=== PATIENT | female | born 1980 | race Caucasian/White ===

== ENCOUNTER → 2018-01-28 16:10 | Outpatient (CLI) | payer OTHER, SELFPAY ==
--- NOTE | 2018-01-28 16:12 | DI.US.S_ITS ---
PROCEDURE: US OB <= 14 WEEKS FETUS INDICATIONS: Dating/Size OUTSIDE/PRIOR DATING DATA: Last menstrual period (LMP): 10/30/17. LMP-based estimated date of delivery (TRISTON): 09/03/18. First dating scan (date and location): 01/28/18, [facility]. Estimated date of delivery (TRISTON) from first dating scan: 09/03/18. TECHNIQUE: Real-time scanning was performed of the fetus and maternal pelvic organs, with image documentation. Endovaginal scanning was also performed to better visualize the fetus and maternal ovaries. COMPARISON: None. FINDINGS: Embryo: A single living uterine gestation is present which measures 2.2 cm in length for a gestational age of 8 weeks, 6 days. No americo-gestational bleed. Measurement variability in dating: +/- 4 weeks by LMP, +/- 7 days by mean sac diameter (use before 6 weeks gestation if crown-rump length not able to be measured), +/- 5 days by crown-rump length (up to 8 weeks 6 days gestation), +/- 7 days by crown-rump length (up to 13 weeks 6 days gestation). Maternal organs: There is a 1.8 cm diameter right ovarian corpus luteal cyst. The left ovary is unremarkable. Limited images through the kidneys demonstrate no hydronephrosis. IMPRESSION: 1. Single live intrauterine gestation with a gestational age of 8 weeks 6 days by crown-rump length. 2. Right corpus luteal cyst. Dictated by: Elana Mcginnis M.D. on 01/28/2018 at 16:56 Approved by: Elana Mcginnis M.D. on 01/28/2018 at 16:58
== END ==
PROVIDERS: Family Provider Family Medicine; PCP Family Medicine; Visit Provider Family Medicine
DX: O34.81 Maternal care for other abnormalities of pelvic organs, first trimester (principal); N83.11 Corpus luteum cyst of right ovary; Z3A.08 8 weeks gestation of pregnancy
CPT/HCPCS: 76801

== ENCOUNTER → 2018-01-30 13:24 | Outpatient (CLI) | payer OTHER, SELFPAY ==
[2018-01-30 14:01] LABS: Add Manual Diff / Slide Review NO; Basophils Percent Auto 0.3 % (0-2); Eosinophils Percent Auto 3.3 % (2-4); Hematocrit 44.2 % (36-46); Hemoglobin 15.6 g/dL (12.0-16.0); Lymphocytes Percent Auto 23.9 % (25-40); Mean Corpuscular HGB Conc 35.3 % (30-36); Mean Corpuscular Volume 90.7 fL (80-100); Monocytes Percent Auto 6.9 % (3-14); Neutrophils Absolute Auto 5700 /uL (3000-5900); Neutrophils Percent Auto 65.6 % (50-75); Platelet Count 294 X10^3/uL (150-400); Red Blood Cell Count 4.88 X10^6/uL (4.0-5.2); Red Cell Distribution Width 12.6 % (11.6-14.8); White Blood Cell Count 8.7 X10^3/uL (4.5-11.0)
[2018-01-30 16:25] LABS: Hepatitis B Surface Antigen NEGATIVE s/c (NEGATIVE); Rubella Antibody IgG 18.5 IU/mL (>15)
[2018-01-30 16:41] LABS: HIV 1 and 2 Antibody NEGATIVE (NEGATIVE); Hep C Virus Ab w/Reflex Quant NEGATIVE s/c (NEGATIVE)
[2018-02-03 14:40] LABS: HSV 2 IGG AB < 0.90 index (< 0.90)
[2018-02-06 13:47] LABS: Rapid Plasma Reagin NON-REACTIVE
== END ==
PROVIDERS: Family Provider Family Medicine; PCP Family Medicine; Visit Provider Family Medicine
DX: Z34.91 Encounter for supervision of normal pregnancy, unspecified, first trimester (principal)
CPT/HCPCS: 36415; 80055; 86695; 86696; 86703; 86787; 86803; 86850; 86900; 86901; 87086

== ENCOUNTER → 2018-03-31 16:36 | Outpatient (CLI) | payer OTHER, SELFPAY ==
[2018-04-06 10:16] LABS: AFP, Serum 29.1 ng/mL; Calc Gestational Age 17.7; Cigarette Smoker N; Donated Egg N; Donor Egg Age NOT GIVEN; Estriol, Free 1.29 ng/mL; Inhibin A, Dimeric 120 pg/mL; Maternal Ethnicity NOT GIVEN; Maternal Weight 154 lbs; Number of Fetuses NOT GIVEN; Previous Pregnancy Down Syndro N; hCG, MoM 0.83; hCG, Serum 20.5 IU/mL
== END ==
PROVIDERS: PCP Family Medicine; Visit Provider Family Medicine
DX: Z3A.17 17 weeks gestation of pregnancy (principal)
CPT/HCPCS: 36415; 82105; 82677; 84702; 86336

== ENCOUNTER → 2018-04-24 15:41 | Outpatient (CLI) | payer OTHER, SELFPAY ==
--- NOTE | 2018-04-24 15:42 | DI.US.S_ITS ---
PROCEDURE: US OB >= 14 WEEKS FETUS INDICATIONS: anatomy screening OUTSIDE/PRIOR DATING DATA: Last menstrual period (LMP): 10/30/17. LMP-based estimated date of delivery (TRISTON): 09/03/18. First dating scan (date and location): 01/28/18, [facility]. Estimated date of delivery (TRISTON) from first dating scan: 09/03/18. TECHNIQUE: Real-time scanning was performed of the fetus, with image documentation and biometric measurements. Endovaginal scanning: No COMPARISON: [facility], , OB <= 14 WEEKS FETUS, 01/28/2018, 16:28. FINDINGS: General: A single living intrauterine gestation is present. Presentation: Vertex. Placenta: Placental position is anterior, without previa. Amniotic fluid index: 16.3 cm, normal range is 5-24 cm. heart rate: 147 beats per minute. Maternal cervical canal: 4.8 cm long. Normal lower limit is 2.5 cm. biometrics: Biparietal diameter: 21 weeks 5 days Head circumference: 21 weeks 5 days Abdominal circumference: 22 weeks 1 day Femur length: 21 weeks 6 days Estimated gestational age from initial scan: 21 weeks 1 day Composite gestational age from present scan: 21 weeks 6 days Estimated weight and percentile: 466 g; 86 percentile Measurement variability for biometric dating: +/- 7 days from 14 weeks to 15 weeks 6 days gestation, +/- 10 days from 16 weeks to 21 weeks 6 days gestation, +/- 2 weeks from 22 weeks to 27 weeks 6 days gestation, +/- 3 weeks for 28 weeks gestation or later. weight reference: 4500 g or EFW >90/95% is considered macrosomia or large for gestational age. EFW <10% is small for gestational age. EFW 5% or less is considered intra-uterine growth restriction. Anatomic survey: Neuro: Ventricles are non-dilated at less than 10 mm. Cisterna magna is normal at 3-11 mm. Cerebellum is normal in size and morphology. Nuchal skin fold: Normal at less than 6 mm between 14-21 weeks gestational age. Face: Nose and lips, facial profile are normal. Spine: No evidence for spina bifida. Heart: 4-chambered heart is present, with normal ventricular outflow tracts. Diaphragm: Diaphragm is intact. Stomach: Left-sided stomach is present. Kidneys: No hydronephrosis. Normal is less than 5 mm in 2nd trimester, less than 7 mm in 3rd trimester. Cord: 3-vessel cord has orthotopic insertion. Bladder: Normal in size. Extremities: All 4 extremities identified. IMPRESSION: 1. Single living IUP redemonstrated and interval growth is upper limits of normal. 2. Normal anatomic survey. Dictated by: Vasile FAY Interpreted: Oralia Levine MD on 04/24/2018 at 16:55 Approved by: Oralia Levine M.D. on 04/24/2018 at 17:01
== END ==
PROVIDERS: PCP Family Medicine; Visit Provider Family Medicine
DX: Z36.89 Encounter for other specified antenatal screening (principal); Z3A.21 21 weeks gestation of pregnancy
CPT/HCPCS: 76811

== ENCOUNTER → 2018-06-05 13:59 | Outpatient (CLI) | payer OTHER, SELFPAY ==
[2018-06-05 15:45] LABS: Hematocrit 37.6 % (36-46); Hemoglobin 12.9 g/dL (12.0-16.0)
[2018-06-05 16:11] LABS: GTT (PREG) 1 Hour PP 50gm Dose 103 mg/dL (76-139)
== END ==
PROVIDERS: PCP Family Medicine; Visit Provider Family Medicine
DX: Z3A.26 26 weeks gestation of pregnancy (principal)
CPT/HCPCS: 36415; 82950; 85014; 85018

== ENCOUNTER → 2018-08-07 14:36 | Outpatient (CLI) | payer OTHER, SELFPAY ==
[2018-08-08 11:53] LABS: Strep Grp B PCR NEG for Grp B Strep
== END ==
PROVIDERS: PCP Family Medicine; Visit Provider Family Medicine
DX: Z3A.36 36 weeks gestation of pregnancy (principal)
CPT/HCPCS: 87653

== ENCOUNTER 2018-08-24 13:45 | Outpatient (RCR) | payer OTHER, SELFPAY ==
--- NOTE | 2018-08-06 18:41 | PT.OIE ---
Current Diagnoses Low back pain (08/05/18) Other specified related conditions, unspecified trimester (08/05/18) Past Medical History (Last Reviewed 07/25/18 @ 09:22 by Yi Rolon DO) Chronic back pain (Chronic 2008) HSV (herpes simplex virus) infection (Chronic 2012) Chickenpox (Resolved 1985) Past Surgical History (Last Reviewed 07/25/18 @ 09:22 by Yi Rolon DO) No history of previous surgery (Resolved 07/2016) Provider Visit Care Team Role Provider Type Yi Rolon DO Attending Provider Physician Primary Care Provider Specialty: Family Practice Address: [address] [place] [address] Email: [email or web address] Physical Therapy Initial Evaluation PT-OP-A Visit Information Start: 08/06/18 18:19 Freq: Status: Active Protocol: Document 08/05/18 11:30 AMH (Rec: 08/06/18 18:39 AMH [email or web address]) Out-Patient Physical Therapy Visit Information Visit Information Visit Type Initial Evaluation Visit Note 38 year old female 36 weeks pregnanct with her first . She has a history of back pain and previous disc injury. She is seeking guidance in this last month of to make sure she is doing all she can for her low back. She describes some soreness in her anterior pelvis and inner thighs and has LBP 4/10 across the low back Visit Start Time 11:30 Visit Stop Time 12:15 Total Visit Minutes 45 Visit Number 1 Evaluation Information Evaluation Date 08/05/18 PT-OP-B Current Condition Start: 08/06/18 18:19 Freq: Status: Active Protocol: Document 08/05/18 11:30 AMH (Rec: 08/06/18 18:39 AMH [email or web address]) Current Condition History of Current Condition Onset Date history of previous low back injury and now 36 weeks Current Complaints general LBP 4/10, anterior groin pain with pregnacy History of Current Condition 38 year old female 36 weeks with her first . She has been active throughout her and wants to make sure she is doing her exercises corrrectly to support her spine as she has a history of disc injury. At this time she is not expereincing any sciatic symptoms but does have general LBP 4/10 Treatment Goals Patient/Caregiver Goals to be instructed with exercises safe for PT-OP-F Manual Assessment Start: 08/06/18 18:19 Freq: Status: Active Protocol: Document 08/05/18 11:30 AMH (Rec: 08/06/18 18:39 AMH [email or web address]) Manual Assessments Soft Tissue Assessment Soft Tissue Mobility Assessment tightness lumbar parapsinals left greater than right, iliopsoas tightness bilaterally, piriformis tightness Joint Mobility Assessment Joint Mobility Assessment increased mobility at the SI joint due to decreased force closure with PT-OP-J Posture/Palpation/Skin Start: 08/06/18 18:19 Freq: Status: Active Protocol: Document 08/05/18 11:30 AMH (Rec: 08/06/18 18:39 AMH [email or web address]) Posture Evaluation Comments Posture Comments Benitez has been very careful with her posture for her and she is standing is really great posture, there is not a exaggerated lumbar lordosis Palpation Assessment Location One Palpation Location lumbar paraspinals Palpation Findings Soft Tissue Tightness Muscle Guarding PT-OP-Q Treatments Start: 08/06/18 18:19 Freq: Status: Active Protocol: Document 08/06/18 18:39 AMH (Rec: 08/06/18 18:41 AMH [email or web address]) Therapeutic Exercises Other Exercises 5 Other Exercise Name modified down dog with a chair Reps/Minutes hold 5 breaths 4 Other Exercise Name seated ball pelvic tilts and lateral tilts Reps/Minutes x 10 3 Other Exercise Name seated ball hip flexor stretch Side bilateral Reps/Minutes hold 1 min 2 Other Exercise Name supine TA and pelvic floor facilitation Reps/Minutes x 10 1 Other Exercise Name TA and pelvic floor facilitation in quadraped PT-OP-T Assessment and Plan Start: 08/06/18 18:19 Freq: Status: Active Protocol: Document 08/05/18 11:30 AMH (Rec: 08/06/18 18:39 AMH [email or web address]) Physical Therapy Assessment Rehab Potential Rehabilitation Potential Excellent Evaluation Complexity Number of Personal Factors/Comorbidities 0 Number of Body Systems Impaired 1-2 Clinical Presentation at Evaluation Stable Impairments Impairments Activity Tolerance Pain Soft Tissue Mobility Tone Other Impairments SI instability with , low back tightness with Goals Three Impairment low back pain rated 4/10 Short Term Goal (STG) prevent any further low back pain and help to reduce tightness in the lower back for the remainder of Benitez's STG Duration 6 weeks Two Impairment iliopsoas tightness left greater than right Short Term Goal (STG) Benitez is able to work on iliopsoas flexibility stretches while seated on the ball STG Duration 6 weeks One Impairment pt seeks guidance with a home core stabilization program Short Term Goal (STG) Benitez is instructed in a program for core stabilization and flexibility STG Duration 5 weeks Assessment Summary Assessment Benitez presents to physical therapy today with low back discomfort and tightness with . She has a history of previous low back disc injury so Benitez is working hard at preventing any return of her nerve radicular symptoms that went along with that previous injury. At this time she complains of low back pain rated 4/10 and has been expereincing soreness in the anterior pelvis. She was in good alignment today with her SI joint but does show some SI instability with single leg stance. Her low back paraspinals are tight but she does not have any pain to palpation. She is limited with iliopsoas tightness and has difficulty feeling her pelvic floor contractions. Today's treament included TA and pelvic floor isolations, stretches for the low back and hip muscle. Physical Therapy Plan Frequency and Duration Frequency of Treatment 1x/Week Duration of Treatment 6 weeks Plan of Care Start Date 08/05/18 Plan of Care End Date 09/09/18 Therapeutic Interventions Therapeutic Interventions Home Exercise Program Manual Therapy Neuromuscular Re-education Self-Care/Home Management Soft Tissue Mobilization Modalities Cold Pack/Ice Massage Next Visit Focus/Plan Next Note Type Treatment Note Next Visit Plan review core stabilization and ball exercises given for HEP, manual therapy techniques to help reduce low back tightness
--- NOTE | 2018-08-10 15:55 | PT.OTN ---
Current Diagnoses Low back pain (08/10/18) Other specified related conditions, unspecified trimester (08/10/18) Physical Therapy Treatment Note PT-OP-A Visit Information Start: 08/06/18 18:19 Freq: Status: Active Protocol: Document 08/10/18 14:30 AMB (Rec: 08/10/18 15:55 AMB [email or web address]) Out-Patient Physical Therapy Visit Information Visit Information Visit Type Treatment Note Visit Start Time 14:45 Visit Stop Time 15:15 Total Visit Minutes 30 Visit Number 2 PT-OP-B Current Condition Start: 08/06/18 18:19 Freq: Status: Active Protocol: Document 08/05/18 11:30 AMH (Rec: 08/06/18 18:39 AMH [email or web address]) Current Condition History of Current Condition Onset Date history of previous low back injury and now 36 weeks Current Complaints general LBP 4/10, anterior groin pain with pregnacy History of Current Condition 38 year old female 36 weeks with her first . She has been active throughout her and wants to make sure she is doing her exercises corrrectly to support her spine as she has a history of disc injury. At this time she is not expereincing any sciatic symptoms but does have general LBP 4/10 Treatment Goals Patient/Caregiver Goals to be instructed with exercises safe for PT-OP-F Manual Assessment Start: 08/06/18 18:19 Freq: Status: Active Protocol: Document 08/05/18 11:30 AMH (Rec: 08/06/18 18:39 AMH [email or web address]) Manual Assessments Soft Tissue Assessment Soft Tissue Mobility Assessment tightness lumbar parapsinals left greater than right, iliopsoas tightness bilaterally, piriformis tightness Joint Mobility Assessment Joint Mobility Assessment increased mobility at the SI joint due to decreased force closure with PT-OP-J Posture/Palpation/Skin Start: 08/06/18 18:19 Freq: Status: Active Protocol: Document 08/05/18 11:30 AMH (Rec: 08/06/18 18:39 AMH [email or web address]) Posture Evaluation Comments Posture Comments Benitez has been very careful with her posture for her and she is standing is really great posture, there is not a exaggerated lumbar lordosis Palpation Assessment Location One Palpation Location lumbar paraspinals Palpation Findings Soft Tissue Tightness Muscle Guarding PT-OP-Q Treatments Start: 08/06/18 18:19 Freq: Status: Active Protocol: Document 08/10/18 14:30 AMB (Rec: 08/10/18 15:55 AMB [email or web address]) Therapeutic Exercises Other Exercises 8 Other Exercise Name LE ER in quadruped 7 Other Exercise Name UE ext in quadruped 6 Other Exercise Name modified milena pose 1 Other Exercise Name TA and pelvic floor facilitation in quadraped Manual Therapy Treatment Soft Tissue Mobilization 1 Body Location low back Mobilization Type Myofascial Release Body Position prone on pillow PT-OP-T Assessment and Plan Start: 08/06/18 18:19 Freq: Status: Active Protocol: Document 08/10/18 14:30 AMB (Rec: 08/10/18 15:55 AMB [email or web address]) Physical Therapy Assessment Assessment Summary Assessment Pt tolerated exercises and manual therapy well. Tends to go into slight lordosis with quadruped, but overall doing well. Physical Therapy Plan Next Visit Focus/Plan Next Note Type Treatment Note Next Visit Plan progress core stabilization and ball exercises given for HEP, manual therapy techniques to help reduce low back tightness
--- NOTE | 2018-08-19 11:50 | PT.OTN ---
Current Diagnoses Low back pain (08/19/18) Other specified related conditions, unspecified trimester (08/19/18) Physical Therapy Treatment Note PT-OP-A Visit Information Start: 08/06/18 18:19 Freq: Status: Active Protocol: Document 08/19/18 08:15 AMB (Rec: 08/19/18 08:29 AMB [email or web address]) Out-Patient Physical Therapy Visit Information Visit Information Visit Type Treatment Note Visit Start Time 08:15 Visit Stop Time 09:00 Total Visit Minutes 45 Visit Number 3 PT-OP-B Current Condition Start: 08/06/18 18:19 Freq: Status: Active Protocol: Document 08/05/18 11:30 AMH (Rec: 08/06/18 18:39 AMH [email or web address]) Current Condition History of Current Condition Onset Date history of previous low back injury and now 36 weeks Current Complaints general LBP 4/10, anterior groin pain with pregnacy History of Current Condition 38 year old female 36 weeks with her first . She has been active throughout her and wants to make sure she is doing her exercises corrrectly to support her spine as she has a history of disc injury. At this time she is not expereincing any sciatic symptoms but does have general LBP 4/10 Treatment Goals Patient/Caregiver Goals to be instructed with exercises safe for PT-OP-C Subjective Start: 08/06/18 18:19 Freq: Status: Active Protocol: Document 08/19/18 08:15 AMB (Rec: 08/19/18 11:50 AMB [email or web address]) OP-PT Subjective Patient Comments Patient Comments Pt went on a hike yesterday and her left sided back pain is a bit increased from that. PT-OP-F Manual Assessment Start: 08/06/18 18:19 Freq: Status: Active Protocol: Document 08/05/18 11:30 AMH (Rec: 08/06/18 18:39 AMH [email or web address]) Manual Assessments Soft Tissue Assessment Soft Tissue Mobility Assessment tightness lumbar parapsinals left greater than right, iliopsoas tightness bilaterally, piriformis tightness Joint Mobility Assessment Joint Mobility Assessment increased mobility at the SI joint due to decreased force closure with PT-OP-J Posture/Palpation/Skin Start: 08/06/18 18:19 Freq: Status: Active Protocol: Document 08/05/18 11:30 AMH (Rec: 08/06/18 18:39 AMH [email or web address]) Posture Evaluation Comments Posture Comments Benitez has been very careful with her posture for her and she is standing is really great posture, there is not a exaggerated lumbar lordosis Palpation Assessment Location One Palpation Location lumbar paraspinals Palpation Findings Soft Tissue Tightness Muscle Guarding PT-OP-Q Treatments Start: 08/06/18 18:19 Freq: Status: Active Protocol: Document 08/19/18 08:15 AMB (Rec: 08/19/18 11:50 AMB [email or web address]) Therapeutic Exercises Other Exercises 8 Other Exercise Name LE ER in quadruped 7 Other Exercise Name UE ext in quadruped 6 Other Exercise Name modified milena pose 1 Other Exercise Name TA and pelvic floor facilitation in quadraped Manual Therapy Treatment Soft Tissue Mobilization 1 Body Location low back Mobilization Type Myofascial Release Body Position prone on pillow Taping 1 Body Location lumbar Type of Tape Kinesio Tape Comments 2Is PT-OP-R Modalities Start: 08/10/18 15:55 Freq: Status: Active Protocol: Document 08/10/18 14:30 AMB (Rec: 08/10/18 15:56 AMB [email or web address]) Hot Pack/Cold Pack Treatment Cold Pack Location low back Patient Position Prone Treatment Duration (minutes) 8 Comments on prone pillow PT-OP-T Assessment and Plan Start: 08/06/18 18:19 Freq: Status: Active Protocol: Document 08/19/18 08:15 AMB (Rec: 08/19/18 11:50 AMB [email or web address]) Physical Therapy Assessment Assessment Summary Assessment The patient is doing well with stretches, continued to educate in body mechanics. Physical Therapy Plan Next Visit Focus/Plan Next Note Type Treatment Note Next Visit Plan progress core stabilization and ball exercises given for HEP, manual therapy techniques to help reduce low back tightness
--- NOTE | 2018-08-24 15:53 | PT.OTN ---
Current Diagnoses Low back pain (08/24/18) Other specified related conditions, unspecified trimester (08/24/18) Physical Therapy Treatment Note PT-OP-A Visit Information Start: 08/06/18 18:19 Freq: Status: Active Protocol: Document 08/24/18 13:45 AMB (Rec: 08/24/18 15:53 AMB [email or web address]) Out-Patient Physical Therapy Visit Information Visit Information Visit Type Treatment Note Visit Start Time 08:15 Visit Stop Time 09:00 Total Visit Minutes 45 Visit Number 4 PT-OP-B Current Condition Start: 08/06/18 18:19 Freq: Status: Active Protocol: Document 08/05/18 11:30 AMH (Rec: 08/06/18 18:39 AMH [email or web address]) Current Condition History of Current Condition Onset Date history of previous low back injury and now 36 weeks Current Complaints general LBP 4/10, anterior groin pain with pregnacy History of Current Condition 38 year old female 36 weeks with her first . She has been active throughout her and wants to make sure she is doing her exercises corrrectly to support her spine as she has a history of disc injury. At this time she is not expereincing any sciatic symptoms but does have general LBP 4/10 Treatment Goals Patient/Caregiver Goals to be instructed with exercises safe for PT-OP-C Subjective Start: 08/06/18 18:19 Freq: Status: Active Protocol: Document 08/24/18 13:45 AMB (Rec: 08/24/18 15:53 AMB [email or web address]) OP-PT Subjective Patient Comments Patient Comments Pt went on two hikes over the weekend and felt like she did pretty well with that. PT-OP-F Manual Assessment Start: 08/06/18 18:19 Freq: Status: Active Protocol: Document 08/05/18 11:30 AMH (Rec: 08/06/18 18:39 AMH [email or web address]) Manual Assessments Soft Tissue Assessment Soft Tissue Mobility Assessment tightness lumbar parapsinals left greater than right, iliopsoas tightness bilaterally, piriformis tightness Joint Mobility Assessment Joint Mobility Assessment increased mobility at the SI joint due to decreased force closure with PT-OP-J Posture/Palpation/Skin Start: 08/06/18 18:19 Freq: Status: Active Protocol: Document 08/05/18 11:30 AMH (Rec: 08/06/18 18:39 AMH [email or web address]) Posture Evaluation Comments Posture Comments Benitez has been very careful with her posture for her and she is standing is really great posture, there is not a exaggerated lumbar lordosis Palpation Assessment Location One Palpation Location lumbar paraspinals Palpation Findings Soft Tissue Tightness Muscle Guarding PT-OP-Q Treatments Start: 08/06/18 18:19 Freq: Status: Active Protocol: Document 08/24/18 13:45 AMB (Rec: 08/24/18 15:53 AMB [email or web address]) Therapeutic Exercises Other Exercises 5 Other Exercise Name modified down dog with a chair Reps/Minutes hold 5 breaths 4 Other Exercise Name seated ball pelvic tilts and lateral tilts Reps/Minutes x 10 3 Other Exercise Name seated ball hip flexor stretch Side bilateral Reps/Minutes hold 1 min 1 Other Exercise Name TA and pelvic floor facilitation in quadraped Manual Therapy Treatment Soft Tissue Mobilization 1 Body Location low back Mobilization Type Myofascial Release Body Position prone on pillow PT-OP-R Modalities Start: 08/10/18 15:55 Freq: Status: Active Protocol: Document 08/10/18 14:30 AMB (Rec: 08/10/18 15:56 AMB [email or web address]) Hot Pack/Cold Pack Treatment Cold Pack Location low back Patient Position Prone Treatment Duration (minutes) 8 Comments on prone pillow PT-OP-T Assessment and Plan Start: 08/06/18 18:19 Freq: Status: Active Protocol: Document 08/24/18 13:45 AMB (Rec: 08/24/18 15:53 AMB [email or web address]) Physical Therapy Assessment Assessment Summary Assessment Pt overall doing well, continued discomfort at lower lumbar spine. Physical Therapy Plan Next Visit Focus/Plan Next Note Type Treatment Note Next Visit Plan progress core stabilization and ball exercises given for HEP, manual therapy techniques to help reduce low back tightness
--- NOTE | 2018-10-01 08:00 | PT.OPDS ---
Current Diagnoses Low back pain (08/24/18) Other specified related conditions, unspecified trimester (08/24/18) Provider Visit Care Team Role Provider Type Yi Rolon DO Attending Provider Physician Primary Care Provider Specialty: [facility] Address: [address] [place] [address], [facility] Email: [email or web address] Visit Number Visit Number 4 Discharge Summary PT-OP-B Current Condition Start: 08/06/18 18:19 Freq: Status: Active Protocol: Document 08/05/18 11:30 AMH (Rec: 08/06/18 18:39 AMH [email or web address]) Current Condition History of Current Condition Onset Date history of previous low back injury and now 36 weeks Current Complaints general LBP 4/10, anterior groin pain with pregnacy History of Current Condition 38 year old female 36 weeks with her first . She has been active throughout her and wants to make sure she is doing her exercises corrrectly to support her spine as she has a history of disc injury. At this time she is not expereincing any sciatic symptoms but does have general LBP 410 Treatment Goals Patient/Caregiver Goals to be instructed with exercises safe for PT-OP-C Subjective Start: 08/06/18 18:19 Freq: Status: Active Protocol: Document 08/24/18 13:45 AMB (Rec: 08/24/18 15:53 AMB [email or web address]) OP-PT Subjective Patient Comments Patient Comments Pt went on two hikes over the weekend and felt like she did pretty well with that. PT-OP-F Manual Assessment Start: 08/06/18 18:19 Freq: Status: Active Protocol: Document 08/05/18 11:30 AMH (Rec: 08/06/18 18:39 AMH [email or web address]) Manual Assessments Soft Tissue Assessment Soft Tissue Mobility Assessment tightness lumbar parapsinals left greater than right, iliopsoas tightness bilaterally, piriformis tightness Joint Mobility Assessment Joint Mobility Assessment increased mobility at the SI joint due to decreased force closure with PT-OP-J Posture/Palpation/Skin Start: 08/06/18 18:19 Freq: Status: Active Protocol: Document 08/05/18 11:30 AMH (Rec: 08/06/18 18:39 AMH [email or web address]) Posture Evaluation Comments Posture Comments Benitez has been very careful with her posture for her and she is standing is really great posture, there is not a exaggerated lumbar lordosis Palpation Assessment Location One Palpation Location lumbar paraspinals Palpation Findings Soft Tissue Tightness Muscle Guarding PT-OP-T Assessment and Plan Start: 08/06/18 18:19 Freq: Status: Active Protocol: Document 10/01/18 07:56 AMB (Rec: 10/01/18 08:00 AMB [email or web address]) Physical Therapy Assessment Goals Three Impairment low back pain rated 4/10 Short Term Goal (STG) prevent any further low back pain and help to reduce tightness in the lower back for the remainder of Benitez's STG Duration 6 weeks Two Impairment iliopsoas tightness left greater than right Short Term Goal (STG) Benitez is able to work on iliopsoas flexibility stretches while seated on the ball STG Duration 6 weeks One Impairment pt seeks guidance with a home core stabilization program Short Term Goal (STG) Benitez is instructed in a program for core stabilization and flexibility STG Duration MET Assessment Summary Assessment Benitez was last seen in July, and has now given . She is therefore discharged. At the time of her last visit, she was doing well with her exercise, but did continue to have some low lumbar discomfort. Physical Therapy Plan Discharge Physical Therapy Discharge Reasons Change in Medical Status
== END 2018-10-14 09:52 | disposition home or self-care (01) ==
LOC: PHYS 13:45
PROVIDERS: PCP Family Medicine; Visit Provider Family Medicine
DX: O26.899 Other specified pregnancy related conditions, unspecified trimester (principal); M54.5 Low back pain
CPT/HCPCS: 97010; 97110; 97140; 97161

== ENCOUNTER → 2018-08-27 15:19 | Outpatient (CLI) | payer OTHER, SELFPAY ==
--- NOTE | 2018-08-27 15:21 | DI.US.S_ITS ---
PROCEDURE: US OB LIMITED INDICATIONS: size less than dates, check fluid and growth OUTSIDE/PRIOR DATING DATA: Last menstrual period (LMP): 10/30/17. LMP-based estimated date of delivery (TRISTON): 09/03/18. First dating scan (date and location): 01/28/18. Estimated date of delivery (TRISTON) from first dating scan: 09/03/18. TECHNIQUE: Real-time scanning was performed of the fetus, with image documentation and biometric measurements. COMPARISON: [facility], OB >= 14 WEEKS FETUS, 04/24/2018, 16:04. FINDINGS: General: A single living intrauterine gestation is present. Presentation: Cephalic Placenta: Placental position is anterior (grade 3) Amniotic fluid index: 12.3 cm, normal range is 5-24 cm. heart rate: 147 beats per minute. Maternal cervical canal: 3.1 cm, closed. biometrics: Biparietal diameter: 9.5 cm, 38 weeks 5 days Head circumference: 35.3 cm, 41 weeks 1 day Abdominal circumference: 35.4 cm, 39 weeks 2 days Femur length: 7.5 cm, 38 weeks 1 day Estimated gestational age from initial scan: 39 weeks 0 days Composite gestational age from present scan: 39 weeks 2 days Estimated weight and percentile: 3723 g (75th percentile) Measurement variability for biometric dating: +/- 7 days from 14 weeks to 15 weeks 6 days gestation, +/- 10 days from 16 weeks to 21 weeks 6 days gestation, +/- 2 weeks from 22 weeks to 27 weeks 6 days gestation, +/- 3 weeks for 28 weeks gestation or later. weight reference: 4500 g or EFW >90/95% is considered macrosomia or large for gestational age. EFW <10% is small for gestational age. EFW 5% or less is considered intra-uterine growth restriction. Other: Not applicable. IMPRESSION: 1. Single intrauterine at 39 weeks 2 days is concordant with the expected age and has demonstrated appropriate interval growth. 2. 2 week discrepancy between the biparietal diameter and head circumference is of doubtful clinical significance. 3. Closed cervix. 4. Estimated weight is within the 75th percentile. Dictated by: Kory Hanna M.D. on 08/27/2018 at 15:41 Approved by: Kory Hanna M.D. on 08/27/2018 at 15:45
== END ==
PROVIDERS: PCP Family Medicine; Visit Provider Family Medicine
DX: O36.5930 Maternal care for other known or suspected poor fetal growth, third trimester, not applicable or unspecified (principal); Z3A.39 39 weeks gestation of pregnancy
CPT/HCPCS: 76815

== ENCOUNTER 2018-09-10 18:15 | Inpatient (IN) | payer OTHER, SELFPAY ==
[2018-09-10] MEDS: DINOPROSTONE VAG (CERVIDIL) 10 MG VAG (20:01)
[2018-09-11 05:56] LABS: Add Manual Diff / Slide Review NO; Basophils Absolute Auto 0 /uL (0-100); Basophils Percent Auto 0.2 % (0-2); Eosinophils Absolute Auto 100 /uL (0-450); Eosinophils Percent Auto 0.5 % (2-4); Hematocrit 42.6 % (36-46); Lymphocytes Absolute Auto 1700 /uL (1100-4500); Lymphocytes Percent Auto 13.6 % (25-40); Mean Corpuscular HGB Conc 35.3 % (30-36); Mean Corpuscular Hemoglobin 33.2 PG (26-34); Monocytes Absolute Auto 900 /uL (0-900); Monocytes Percent Auto 7.3 % (3-14); Neutrophils Absolute Auto 9500 /uL (1500-7000); Neutrophils Percent Auto 78.4 % (50-75); Platelet Count 297 X10^3/uL (150-400); Red Blood Cell Count 4.53 X10^6/uL (4.0-5.2); Red Cell Distribution Width 14.2 % (11.6-14.8); White Blood Cell Count 12.2 X10^3/uL (4.5-11.0)
--- NOTE | 2018-09-11 07:31 | PM.OBHP.1 ---
OB HPI Date/Time Date of admission: 09/10/18 Date Patient Seen: 09/11/18 Time Patient Seen: 07:10 History of Present Condition Chief complaint: INDUCTION : 1 Para: 0 Estimated Date of Delivery: 09/03/18 Estimated Gestational Age (weeks): 41w1d Narrative: Benitez Andres is a 38 year old at 41 weeks and 1 day gestation here for post-dates induction. She received Cervidil at approximately 8:00 p.m. on 09/10/18. At 2:00 a.m. contractions became regular and painful. At 5:00 a.m. she was found to be 3.5/90/0. has been uncomplicated. She is taking acyclovir prophylactically for history of genital herpes. No outbreaks this . Indications Indication for induction OB: post dates History of Present care: good care, initiated at week # (9), number of visits (13) and pounds weight gain (23) Dating criteria: LMP confirmed by 1st trimester US Ultrasounds: normal 1st trimester US and normal mid trimester US Obstetrical complications: none Medical complications: none Preadmission Labs Blood type: O (+) positive -: Antibody screen: negative, GBS status: negative, HBsAG: negative, HIV: negative, HSV 1: negative, HSV 2: positive and RPR/VDLR: negative -: Chlamydia screen: not detected and Gonorrhea screen: not detected -: Rubella: immune and Varicella: immune HCT: 44.2 HCAB: negative PAP: Normal Quad screen: Normal Urine: Mixed luisana 1 hr GTT: 103 Evaluation Evaluation Baseline heart rate: 130 Variability: Moderate (11-25) monitor accelerations: Absent monitor decelerations: Absent Contraction Frequency (minutes): 3 Uterine Contraction Intensity: Strong/Firm Category of Tracing: I Cervical dilation (cm): 4 Cervical effacement (%): 90 station: 0 Laboratory results: Laboratory Tests 09/11/18 05:35 WBC 12.2 H RBC 4.53 Hgb 15.0 Hct 42.6 MCV 94.0 MCH 33.2 MCHC 35.3 RDW 14.2 Plt Count 297 Neut % (Auto) 78.4 H Lymph % (Auto) 13.6 L [place] % (Auto) 7.3 Eos % (Auto) 0.5 L Baso % (Auto) 0.2 Neut # (Auto) 9500 H Lymph # (Auto) 1700 [place] # (Auto) 900 Eos # (Auto) 100 Baso # (Auto) 0 PFSH Medical History Chronic back pain (Chronic 2008) HSV (herpes simplex virus) infection (Chronic 2012) Chickenpox (Resolved 1985) Surgical History No history of previous surgery (Resolved 07/2016) Family History Grandfather Heart disease Heart attack Grandmother Stroke Father No problems noted. Mother No problems noted. Grandfather No problems noted. Sister No problems noted. Social History marital status: occupational status: employed ([employer]) Smoking Status: Never smoker alcohol intake: former substance use type: does not use Family History Grandfather Heart disease Heart attack Grandmother Stroke Father No problems noted. Mother No problems noted. Grandfather No problems noted. Sister No problems noted. Social History marital status: occupational status: employed ([employer]) Smoking Status: Never smoker alcohol intake: former substance use type: does not use Meds Home Medications Medication Instructions Recorded Confirmed Type ascorbic acid (vitamin C) #0 07/04/17 11/26/17 History cholecalciferol (vitamin D3) 2,000 unit PO QDAY #0 10/07/17 11/26/17 History [Vitamin D3] acyclovir 400 mg tablet 400 mg PO BID #60 tab 08/31/18 Rx vitamin-ferrous fumarate 1 cap PO QDAY #30 cap 08/31/18 Rx 65 mg iron-folic acid 1 mg capsule Allergies Allergy/AdvReac Type Severity Reaction Status Date / Time Sulfa (Sulfonamide Allergy Intermediate RASH Unverified 11/26/17 08:25 Antibiotics) [SULFA (SULFONAMIDE ANTIBIOTICS)] Review of Systems Constitutional Constitutional: Denies fever(s) and Denies headache(s) ENT Ears, Nose, Mouth, and Throat: No headache(s) Respiratory Respiratory: Denies cough Gastrointestinal Gastrointestinal: Reports nausea and Denies vomiting Neurologic Neurologic: Denies headache(s) Exam Vital Signs (past 8 hours): Temperature 36.7? blood pressure 125/82 heart rate 83 Const General: cooperative and healthy appearing [facility] Head: normal to inspection Ears: hearing grossly normal bilaterally Nose: external nose normal Mouth: oral mucosae normal Eyes General: appearance normal, both eyes and all related structures Neck Neck: normal visual inspection Thyroid: thyroid normal Resp Effort & Inspection: normal respiratory effort Auscultation: clear to auscultation bilaterally Cardio Rate: regular rate Rhythm: regular rhythm External Female Exam: external appearance normal Manual OB Exam: dilated 4, effaced (90) and station 0 Uterus Location (Fundal Height): 39 Presentation: vertex Estimated Weight (lbs): 8 Neuro General: alert, awake and oriented x3 Extrem General: normal to inspection and no pedal edema Objective Labs Result Diagrams: 09/11/18 05:35 Labs: Laboratory Results - last 24 hr 09/11/18 05:35 WBC 12.2 H RBC 4.53 Hgb 15.0 Hct 42.6 MCV 94.0 MCH 33.2 MCHC 35.3 RDW 14.2 Plt Count 297 Neut % (Auto) 78.4 H Lymph % (Auto) 13.6 L [place] % (Auto) 7.3 Eos % (Auto) 0.5 L Baso % (Auto) 0.2 Neut # (Auto) 9500 H Lymph # (Auto) 1700 [place] # (Auto) 900 Eos # (Auto) 100 Baso # (Auto) 0
--- NOTE | 2018-09-11 07:34 | P.HPOB_ITS ---
OB HPI Date/Time Date of admission: 09/10/18 Date Patient Seen: 09/11/18 Time Patient Seen: 07:10 History of Present Condition Chief complaint: INDUCTION : 1 Para: 0 Estimated Date of Delivery: 09/03/18 Estimated Gestational Age (weeks): 41w1d Narrative: Benitez Andres is a 38 year old at 41 weeks and 1 day gestation here for post-dates induction. She received Cervidil at approximately 8:00 p.m. on 09/10/18. At 2:00 a.m. contractions became regular and painful. At 5:00 a.m. she was found to be 3.5/90/0. has been uncomplicated. She is taking acyclovir prophylactically for history of genital herpes. No outbreaks this . Indications Indication for induction OB: post dates History of Present care: good care, initiated at week # (9), number of visits (13) and pounds weight gain (23) Dating criteria: LMP confirmed by 1st trimester US Ultrasounds: normal 1st trimester US and normal mid trimester US Obstetrical complications: none Medical complications: none Preadmission Labs Blood type: O (+) positive -: Antibody screen: negative, GBS status: negative, HBsAG: negative, HIV: negat jennifer, HSV 1: negative, HSV 2: positive and RPR/VDLR: negative -: Chlamydia screen: not detected and Gonorrhea screen: not detected -: Rubella: immune and Varicella: immune HCT: 44.2 HCAB: negative PAP: Normal Quad screen: Normal Urine: Mixed luisana 1 hr GTT: 103 Evaluation Evaluation Baseline heart rate: 130 Variability: Moderate (11-25) monitor accelerations: Absent monitor decelerations: Absent Contraction Frequency (minutes): 3 Uterine Contraction Intensity: Strong/Firm Category of Tracing: I Cervical dilation (cm): 4 Cervical effacement (%): 90 station: 0 Laboratory results: Laboratory Tests 09/11/18 05:35 WBC 12.2 H RBC 4.53 Hgb 15.0 Hct 42.6 MCV 94.0 MCH 33.2 MCHC 35.3 RDW 14.2 Plt Count 297 Neut % (Auto) 78.4 H Lymph % (Auto) 13.6 L [place] % (Auto) 7.3 Eos % (Auto) 0.5 L Baso % (Auto) 0.2 Neut # (Auto) 9500 H Lymph # (Auto) 1700 [place] # (Auto) 900 Eos # (Auto) 100 Baso # (Auto) 0 PFSH Medical History Chronic back pain (Chronic 2008) HSV (herpes simplex virus) infection (Chronic 2012) Chickenpox (Resolved 1985) Surgical History No history of previous surgery (Resolved 07/2016) Family History Grandfather Heart disease Heart attack Grandmother Stroke Father No problems noted. Mother No problems noted. Grandfather No problems noted. Sister No problems noted. Social History marital status: occupational status: employed ([employer]) Smoking Status: Never smoker alcohol intake: former substance use type: does not use Family History Grandfather Heart disease Heart attack Grandmother Stroke Father No problems noted. Mother No problems noted. Grandfather No problems noted. Sister No problems noted. Social History marital status: occupational status: employed ([employer]) Smoking Status: Never smoker alcohol intake: former substance use type: does not use Meds Home Medications Medication Instructions Recorded Confirmed Type ascorbic acid (vitamin C) #0 07/04/17 11/26/17 History cholecalciferol (vitamin D3) 2,000 unit PO QDAY #0 10/07/17 11/26/17 History [Vitamin D3] acyclovir 400 mg tablet 400 mg PO BID #60 tab 08/31/18 Rx vitamin-ferrous fumarate 1 cap PO QDAY #30 cap 08/31/18 Rx 65 mg iron-folic acid 1 mg capsule Allergies Allergy/AdvReac Type Severity Reaction Status Date / Time Sulfa (Sulfonamide Allergy Intermediate RASH Unverified 11/26/17 08:25 Antibiotics) [SULFA (SULFONAMIDE ANTIBIOTICS)] Review of Systems Constitutional Constitutional: Denies fever(s) and Denies headache(s) ENT Ears, Nose, Mouth, and Throat: No headache(s) Respiratory Respiratory: Denies cough Gastrointestinal Gastrointestinal: Reports nausea and Denies vomiting Neurologic Neurologic: Denies headache(s) Exam Vital Signs (past 8 hours): Temperature 36.7? blood pressure 125/82 heart rate 83 Const General: cooperative and healthy appearing [facility] Head: normal to inspection Ears: hearing grossly normal bilaterally Nose: external nose normal Mouth: oral mucosae normal Eyes General: appearance normal, both eyes and all related structures Neck Neck: normal visual inspection Thyroid: thyroid normal Resp Effort & Inspection: normal respiratory effort Auscultation: clear to auscultation bilaterally Cardio Rate: regular rate Rhythm: regular rhythm External Female Exam: external appearance normal Manual OB Exam: dilated 4, effaced (90) and station 0 Uterus Location (Fundal Height): 39 Presentation: vertex Estimated Weight (lbs): 8 Neuro General: alert, awake and oriented x3 Extrem General: normal to inspection and no pedal edema Objective Labs Result Diagrams: 09/11/18 05:35 Labs: Laboratory Results - last 24 hr 09/11/18 05:35 WBC 12.2 H RBC 4.53 Hgb 15.0 Hct 42.6 MCV 94.0 MCH 33.2 MCHC 35.3 RDW 14.2 Plt Count 297 Neut % (Auto) 78.4 H Lymph % (Auto) 13.6 L [place] % (Auto) 7.3 Eos % (Auto) 0.5 L Baso % (Auto) 0.2 Neut # (Auto) 9500 H Lymph # (Auto) 1700 [place] # (Auto) 900 Eos # (Auto) 100 Baso # (Auto) 0
[2018-09-11 08:28] VITALS: BP 125/82
[2018-09-11] MEDS: LACTATED RINGERS 1,000 ML 100 ML IV ×4 (09:38→23:30)
[2018-09-11] MEDS: OXYTOCIN PREMIX 30 UNIT/500 ML PLAST..BAG IV (12:26)
--- NOTE | 2018-09-11 13:21 | PM.OBPNLAB ---
Date/Time Date Patient Seen: 09/11/18 Time Patient Seen: 13:00 Pain Control Pain control: epidural (Just bolused, still painful with contractions) Pelvic Exam Dilation (cm): 6 Effacement (%): 100 station: 0 Amniotic membrane status: Ruptured (Blood tinged) Contractions Contractions on admission: regular Pitocin rate (mU/min): 2 Contraction frequency (min): 3 Contraction pattern: Regular Contraction intensity: Strong/Firm Status status: Category l Heart Rate Baseline: 130 Monitor Accelerations: Present Monitor Decelerations: Absent Monitor Variability: Moderate Assessment and Plan Assessment: active labor Plan: continuous present management
--- NOTE | 2018-09-11 19:39 | PM.OBPNLAB ---
Date/Time Date Patient Seen: 09/11/18 Time Patient Seen: 19:39 Pain Control Pain control: tolerating well and epidural Pelvic Exam Dilation (cm): 10 Effacement (%): 100 station: +1 Amniotic membrane status: Ruptured (Blood tinged) Contractions Monitor mode: External Contraction frequency (min): 3 Contraction pattern: Regular Contraction intensity: Strong/Firm Status status: Category ll Heart Rate Baseline: 140 Monitor Accelerations: Present Monitor Decelerations: Episodic (early and late decelerations) Monitor Variability: Minimal Assessment and Plan Assessment: active labor Plan: Comments: Patient has been pushing for 2.5 hours with minimal progress despite excellent effort. FHT category 2 for intermittent late decelerations. After consultation with Dr. Thapa, the decision was made to proceed with primary low transverse section. Discussed options with patient including vacuum, forceps and however vacuum and forceps felt to be unfavorable due to station and position of fetus. Reviewed risks of surgery with patient including bleeding, infection and injury to surrounding organs. All questions were answered the patient and her 's satisfaction. Consent signed. Will give 2 g Ancef prior to surgery.
--- NOTE | 2018-09-11 19:50 | PM.PREOP ---
Pre-operative Note Interval Note History & Physical reviewed/Exam performed by Physician: Yes Changes to H&P: No
[2018-09-11] MEDS: CEFAZOLIN 2 GM/100 ML FROZ.PIGGY IV (20:37)
--- NOTE | 2018-09-11 21:00 | SUR.OPER ---
Supine on padded OR bed, head on pillow, arms secured on padded arm boards at <90 degrees abduction, legs uncrossed, safety belt at thigh, tape over blanket over lower legs.
--- NOTE | 2018-09-11 21:19 | SUR.OPER ---
Healthy boy born at 2050, heart rate 158.
[2018-09-11 21:39] VITALS: BP 87/54; PULSE 73; RESP 18; TEMP 36.6; O2SAT 98
[2018-09-11 21:44] VITALS: BP 91/58; PULSE 74; RESP 15; O2SAT 99
[2018-09-11 21:50] VITALS: BP 92/59; PULSE 75; RESP 20; O2SAT 99
--- NOTE | 2018-09-11 21:54 | P.OP_ITS ---
Operative Date/Time/Diagnoses Date of procedure: 09/11/18 Time of procedure: 21:00 Pre-op diagnosis: 41 weeks Failure to descend Post-op diagnosis: same Procedure & Clinicians Procedure: Primary low transverse section Same procedure as scheduled: Yes Indications: 41 weeks of Failure to descend Surgeon: Yi Rolon [place] Technician: Chasity Thapa Anesthesia Type: Spinal Operative Notes Findings: Vigorous male Normal uterus, tubes and ovaries Closure Type: primary Applied: catheter Estimated Blood Loss (mL): 500 Blood products transfused: none Procedure in detail: The patient was taken to the operating room where she was placed in the right lateral position. Spinal anesthesia was administered. She was then placed in the dorsal supine position with a leftward tilt. She was prepped and draped in the usual sterile fashion. A timeout was performed. After spinal analgesia was found to be adequate, a Pfannenstiel skin incision was made 2 fingerbreadths above the pubic symphysis and carried through to the underlying layer fascia. The fascia was nicked in the midline and the incision extended bilaterally with Tineo scissors. The superior aspect of the fascial incision was grasped with a Maegan clamps, elevated, and the underlying rectus muscles dissected off sharply and bluntly. Attention was then turned to the inferior aspect of this incision which in a similar fashion was grasped with a Maegan clamps, elevated, and the underlying rectus muscles dissected off sharply and bluntly. The rectus muscles were in the midline. The peritoneum was identified, grasped between 2 hemostats, and entered sharply with the Metzenbaum scissors. This incision was extended superiorly and inferiorly with good visualization of the bladder. The bladder blade was inserted. The vesicouterine peritoneum was identified, grasped with the pickup, and entered sharply with the Metzenbaum scissors. This incision was extended bilaterally, and the bladder flap was created digitally. The bladder blade was reinserted. The lower uterine segment was incised in a transverse fashion with the scalpel. Upon entering the amniotic sac there was a small amount clear amniotic fluid. The infant's head was delivered. The remainder of the body delivered without difficulty. The cord was double clamped and cut. The infant was handed off to waiting RN and RT. The placenta was delivered manually. The uterus was cleared of all clots and debris. The uterine incision was repaired with #1 chromic in a running interlocking fashion and a second layer the same suture was used for an imbricating layer. Hemostasis was achieved. The tubes and ovaries were examined and were found to be normal. The gutters were cleared of all clots and debris. The bladder flap was reapproximated using 2-0 Vicryl in a running fashion. The parietal peritoneum was closed using 2-0 Vicryl in a running fashion. The fascia was reapproximated using 0 Vicryl in a running fashion. Subcutaneous layer was copiously irrigated with warm normal saline. 3-0 Vicryl in a running fashion was used to reapproximate the subcutaneous layer. The skin was closed with 4-0 undyed Vicryl in a subcuticular fashion. Steri-Strips were placed. An Aquacel dressing was placed. The uterus was expressed of a small amount of old blood. Sponge, lap, and instrument counts were correct. The patient tolerated the procedure well, and was taken to PACU in stable condition. Complications: none Condition: stable Disposition: PACU
[2018-09-11 22:00] VITALS: BP 90/62; PULSE 75; RESP 18; O2SAT 99
--- NOTE | 2018-09-11 22:15 | SUR.PHASEI ---
300cc clear marito urine emptied form kerr
--- NOTE | 2018-09-11 22:16 | SUR.PHASEI ---
300 cc clear marito urine from kerr, dressing dry and intact, IV patent and infusing, pt denied any pain or discomfort, no c/o nausea. bedside handoff to RN CAROLINA
[2018-09-12] MEDS: KETOROLAC 30 MG/ML VIAL IV ×3 (03:36→20:32)
[2018-09-12 08:19] LABS: Add Manual Diff / Slide Review NO; Basophils Absolute Auto 0 /uL (0-100); Basophils Percent Auto 0.2 % (0-2); Eosinophils Absolute Auto 0 /uL (0-450); Eosinophils Percent Auto 0.1 % (2-4); Hematocrit 33.7 % (36-46); Hemoglobin 11.9 g/dL (12.0-16.0); Lymphocytes Absolute Auto 1300 /uL (1100-4500); Lymphocytes Percent Auto 8.5 % (25-40); Mean Corpuscular HGB Conc 35.2 % (30-36); Mean Corpuscular Hemoglobin 33.6 PG (26-34); Mean Corpuscular Volume 95.4 fL (80-100); Monocytes Absolute Auto 800 /uL (0-900); Monocytes Percent Auto 4.9 % (3-14); Neutrophils Absolute Auto 13300 /uL (1500-7000); Neutrophils Percent Auto 86.3 % (50-75); Platelet Count 230 X10^3/uL (150-400); Red Blood Cell Count 3.53 X10^6/uL (4.0-5.2); Red Cell Distribution Width 14.3 % (11.6-14.8); White Blood Cell Count 15.4 X10^3/uL (4.5-11.0)
[2018-09-12] MEDS: DOCUSATE 250 MG CAPSULE PO (09:34)
--- NOTE | 2018-09-12 09:49 | PM.OBPN.1 ---
Subjective - OB Patient comments: no complaints and pain well controlled [place] baby status: doing well [place] feeding status: exclusively breast feeding Date Patient Seen: 09/12/18 Time Patient Seen: 09:19 Interval history: Patient did well over night. She has not yet stood up or had her Soto removed. Denies pain. is going well. She has not assessed her bleeding herself but nurses told her it was okay. She is eager to get up and take a shower. Exam Vital Signs (past 8 hours): Oxygen Delivery Method Room Air Temperature 98.1? blood pressure 97/53 heart rate 73 respirations 16 Narrative Exam Narrative: General: Awake and alert, no acute distress. HEENT: NCAT, EOMI, moist oral mucosa CV: Regular rate and rhythm, no murmurs, rubs or gallops Lungs: CTAB, no wheezes, rales, or rhonchi Abdomen: Lower abdominal incision intact with minimal drainage. Soft, nontender; bowel tones active; uterus firm 1 cm below umbilicus. Extremities: Warm, trace bilateral edema, 2+ pedal pulses bilaterally Objective Labs Result Diagrams: 09/12/18 08:10 Labs: Laboratory Results - last 24 hr 09/12/18 08:10 WBC 15.4 H RBC 3.53 L Hgb 11.9 L Hct 33.7 L MCV 95.4 MCH 33.6 MCHC 35.2 RDW 14.3 Plt Count 230 Neut % (Auto) 86.3 H Lymph % (Auto) 8.5 L [place] % (Auto) 4.9 Eos % (Auto) 0.1 L Baso % (Auto) 0.2 Neut # (Auto) 09493 H Lymph # (Auto) 1300 [place] # (Auto) 800 Eos # (Auto) 0 Baso # (Auto) 0 Assessment & Plan (1) 41 weeks gestation of : Status: Acute Current Visit: Yes (2) S/P : Status: Acute Current Visit: Yes (3) Failure of descent in labor, delivered, current hospitalization: Status: Acute Current Visit: Yes Plan day: 1 plan OB: routine postop care Comments: Remove Soto today. Ambulate. Breast-feeding support. Anticipate discharge home in 1-2 days. Time Spent With Patient Total time spent is greater than 50% in coordination of care (as documented) at patient's floor/unit and/or counseling patient: 15-24 minutes
[2018-09-12] MEDS: OXYCODONE/ACETAMINOPHEN 5/325 TABLET 1 TAB PO (12:54)
--- NOTE | 2018-09-13 09:08 | P.DS_ITS ---
Discharge Providers Date of admission: 09/10/18 18:15 Discharge Date: 09/13/18 Primary care physician: Yi Rolon DO Consults: 09/12/18 00:30 Consult to Editor Greeting Card Routine Comment: Discharge provider: Yi Rolon DO Summary Date Patient Seen: 09/13/18 Time Patient Seen: 08:29 Procedures: Primary low transverse section Hospital Course: Patient is a 38-year-old G1 now P1 status post primary section for failure to descend and arrest of second stage of labor. Patient was brought in for postdates induction and progressed well with Cervidil and minimal Pitocin. heart tones were category 2 throughout stage I and 2 due to intermittent variable deceleration as well as intermittent prolonged late decelerations. After 2.5 hr of pushing there was no significant descent of the fetus and heart tones remained category 2 so the decision was made to proceed with C- section. was uncomplicated. Patient did very well postoperatively. Pain controlled with ibuprofen. She was ambulating, voiding and passing flatus. Breast-feeding going very well. She and her were eager to return home with their . Peripartum Data Delivery Method: Section (Failure to descend, arrest of second stage) complications: none 1: Gender: Male Disposition of : home Discharge Diagnosis (1) 41 weeks gestation of : Status: Acute (2) S/P : Status: Acute (3) Failure of descent in labor, delivered, current hospitalization: Status: Acute Status at Discharge Cognitive/behavioral status at discharge: at baseline, oriented Overall status at discharge: patient is progressing back to baseline Time Spent with Patient Total time spent providing and/or coordinating discharge services: Greater than 30 minutes Objective Labs Result Diagrams: 09/12/18 08:10 Exam Vital Signs (past 8 hours): Oxygen Delivery Method Room Air Temperature 98.8? blood pressure 110/62 heart rate 88 respirations 18 General: Awake and alert, no acute distress. HEENT: NCAT, EOMI, moist oral mucosa CV: Regular rate and rhythm, no murmurs, rubs or gallops Lungs: CTAB, no wheezes, rales, or rhonchi Abdomen: Lower abdominal dressing intact with minimal drainage. Abdomen soft, nontender; bowel tones active; uterus firm 2 cm below umbilicus Extremities: Warm, no edema, 2+ pedal pulses bilaterally Discharge Plan Discharge Plan Patient Disposition: Home Discharge comment: Call for fevers, severe pain or bleeding through more than a pad an hour. Discharge Med Rec/Prescriptions Prescriptions: New oxycodone-acetaminophen 5-325 mg Tablet 1 tab PO Q4HR PRN (Reason: Pain, Moderate (4-6)) Qty: 10 RF: 0 ibuprofen 600 mg Tablet 600 mg PO Q6HR PRN (Reason: As Needed For Fever/Mild Pain) Qty: 30 RF: 0 docusate sodium 250 mg Capsule 250 mg PO DAILY Qty: 30 RF: 0 Continued Mynatal 65 mg iron- 1 mg capsule 1 cap PO QDAY Qty: 30 RF: 11 Discontinued acyclovir 400 mg tablet 400 mg PO BID Qty: 60 RF: 0 Follow up/Referrals: Yi Rolon DO [Primary Care Provider] - 09/18/18 12:00 pm (Follow up with Dr. Rolon at [facility] on Monday 09/18 @ 12:00PM. ) Visit Report/Discharge Packet Stand Alone Forms: Discharge: Care Visit Report Forms: Stroke Signs & Symptoms Discharge Data Primary Care Provider: Yi Rolon Attending Provider: Yi Rolon Admit Date/Time: 09/10/18 18:15
[2018-09-13] MEDS: DOCUSATE 250 MG CAPSULE PO (09:20)
[2018-09-13] MEDS: IBUPROFEN 600 MG TABLET PO (09:20)
[2018-09-13 09:28] VITALS: BP 113/69; PULSE 96; RESP 16; TEMP 37.3
[2018-09-13] MEDS: OXYCODONE/ACETAMINOPHEN 5/325 TABLET 1 TAB PO (13:39)
== END 2018-09-13 13:51 | disposition home or self-care (01) | DRG 788 ==
PROVIDERS: Specialist; Admitting Provider Family Medicine; PCP Family Medicine; Visit Provider Family Medicine
PROC: (CPT 59514; principal; 2018-09-11 20:00)
DX: O48.0 Post-term pregnancy (principal); Z3A.41 41 weeks gestation of pregnancy; Z37.0 Single live birth; O62.1 Secondary uterine inertia
CPT/HCPCS: 01967; 01968; 36415; 59050; 59510; 59514; 85025; 86850; 86900; 86901; J0690; J1885; J2274; J2590

== ENCOUNTER → 2019-07-19 14:18 | Outpatient (CLI) | payer OTHER, SELFPAY ==
--- NOTE | 2019-07-19 14:19 | DI.US.S_ITS ---
PROCEDURE: US OB <= 14 WEEKS FETUS INDICATIONS: DATES OUTSIDE/PRIOR DATING DATA: Last menstrual period (LMP): 05/12/19. LMP-based estimated date of delivery (TRISTON): 02/16/20. First dating scan (date and location): This study. Estimated date of delivery (TRISTON) from first dating scan: 02/20/20. TECHNIQUE: Real-time scanning was performed of the fetus and maternal pelvic organs, with image documentation. Endovaginal scanning was also performed to better visualize the fetus and maternal ovaries. COMPARISON: [facility], , OB <= 14 WEEKS FETUS, 01/28/2018, 16:28. FINDINGS: Embryo: [place]-rump length 2.4 cm with 9 week 1 day gestational age estimated and the heart rate 178 beats per minute. Measurement variability in dating: +/- 4 weeks by LMP, +/- 7 days by mean sac diameter (use before 6 weeks gestation if crown-rump length not able to be measured), +/- 5 days by crown-rump length (up to 8 weeks 6 days gestation), +/- 7 days by crown-rump length (up to 13 weeks 6 days gestation). Maternal organs: Ovaries not seen on the right and normal on the left. Limited images through the kidneys demonstrate no hydronephrosis. IMPRESSION: 9 week 1 day gestational age, recommend followup anatomic survey at approximately 20 weeks gestation. Dictated by: Jeanmarie Bird M.D. on 07/19/2019 at 15:36 Approved by: Jeanmarie Bird M.D. on 07/19/2019 at 15:37
== END ==
PROVIDERS: PCP Family Medicine; Visit Provider Family Medicine
DX: Z34.81 Encounter for supervision of other normal pregnancy, first trimester (principal); Z3A.09 9 weeks gestation of pregnancy
CPT/HCPCS: 76801; 76817

== ENCOUNTER → 2019-09-09 15:50 | Outpatient (CLI) | payer OTHER, SELFPAY ==
[2019-09-09 17:10] LABS: Appearance Urine UA CLEAR; Bilirubin Urine UA NEGATIVE (NEGATIVE); Color Urine UA YELLOW; Glucose Urine UA NEGATIVE (Negative); Ketones Urine UA NEGATIVE (NEGATIVE); Leukocyte Esterase Urine UA NEGATIVE (NEGATIVE); Nitrite Urine UA NEGATIVE (Negative); Occult Blood Urine UA NEGATIVE (Negative); Protein Urine UA NEGATIVE (Negative); Specific Gravity Urine UA 1.025 (1.000-1.035); Urobilinogen Urine UA 0.2 E.U./dL (0.2)
[2019-09-09 17:30] LABS: Add Manual Diff / Slide Review NO; Basophils Absolute Auto 0 /uL (0-100); Basophils Percent Auto 0.2 % (0-2); Eosinophils Absolute Auto 100 /uL (0-450); Eosinophils Percent Auto 2.1 % (2-4); Hematocrit 38.6 % (36-46); Hemoglobin 13.6 g/dL (12.0-16.0); Lymphocytes Absolute Auto 1700 /uL (1100-4500); Lymphocytes Percent Auto 25.1 % (25-40); Mean Corpuscular HGB Conc 35.3 % (30-36); Mean Corpuscular Hemoglobin 31.6 PG (26-34); Mean Corpuscular Volume 89.7 fL (80-100); Monocytes Absolute Auto 400 /uL (0-900); Monocytes Percent Auto 6.7 % (3-14); Neutrophils Absolute Auto 4400 /uL (1500-7000); Neutrophils Percent Auto 65.9 % (50-75); Platelet Count 268 X10^3/uL (150-400); Red Blood Cell Count 4.31 X10^6/uL (4.0-5.2); Red Cell Distribution Width 14.6 % (11.6-14.8); White Blood Cell Count 6.7 X10^3/uL (4.5-11.0)
[2019-09-09 19:02] LABS: Hepatitis B Surface Antigen NEGATIVE s/c (NEGATIVE)
[2019-09-09 19:18] LABS: HIV 1 & 2 Ab/Ag 4th Gen Combo NEGATIVE (NEGATIVE); Hep C Virus Ab w/Reflex Quant NEGATIVE s/c (NEGATIVE)
[2019-09-09 21:00] LABS: Rubella Antibody IgG 13.4 IU/mL (>15)
[2019-09-10 10:09] LABS: RPR Screen Non Reactive (Non Reactive); Varicella IgG Antibody 1154 index (Immune >165)
[2019-09-10 19:06] LABS: HSV I/II IgM <0.91 Ratio (0.00-0.90)
[2019-09-11 20:07] LABS: AFP, Serum 40.7 ng/mL (.); Calc Gestational Age Ultrasound (.); Estriol, Free 0.97 ng/mL (.); Inhibin A, Dimeric 105.02 pg/mL (.); Inhibin A, MoM 0.65 (.); Maternal Ethnicity Caucasian (.); Maternal Weight 155 lbs (.); Number of Fetuses No (.); OSBR Risk 1 IN 9540 (.); Results Report (.); Test Results *Screen Negative* (.); hCG, MoM 0.95 (.); hCG, Serum 30375 mIU/mL (.)
== END ==
PROVIDERS: PCP Family Medicine; Referring Provider Family Medicine; Visit Provider Family Medicine
DX: Z34.81 Encounter for supervision of other normal pregnancy, first trimester (principal); Z3A.16 16 weeks gestation of pregnancy
CPT/HCPCS: 36415; 80055; 81003; 82105; 82677; 84702; 86336; 86694; 86787; 86803; 86850; 86900; 86901; 87086; 87389

== ENCOUNTER → 2019-10-01 15:51 | Outpatient (CLI) | payer OTHER, SELFPAY ==
[2019-10-01 20:40] LABS: Urine N gonorrhoeae NOT DETECTED
[2019-10-01 20:44] LABS: Urine Chlamydia NOT DETECTED
== END ==
PROVIDERS: PCP Family Medicine; Visit Provider Family Medicine
DX: Z34.90 Encounter for supervision of normal pregnancy, unspecified, unspecified trimester (principal); Z3A.20 20 weeks gestation of pregnancy
CPT/HCPCS: 87491; 87591

== ENCOUNTER → 2019-10-08 16:14 | Outpatient (CLI) | payer OTHER, SELFPAY ==
--- NOTE | 2019-10-08 16:19 | DI.US.S_ITS ---
PROCEDURE: US OB >= 14 WEEKS FETUS INDICATIONS: ANATOMY OUTSIDE/PRIOR DATING DATA: Last menstrual period (LMP): 05/12/19. LMP-based estimated date of delivery (TRISTON): 02/16/20. First dating scan (date and location): 07/19/19. Estimated date of delivery (TRISTON) from first dating scan: 02/20/20, plus or -5 days. TECHNIQUE: Real-time scanning was performed of the fetus, with image documentation and biometric measurements. Endovaginal scannin needed for this examination. COMPARISON: [facility], OB <= 14 WEEKS FETUS, 07/19/2019, 14:26. [facility], OB >= 14 WEEKS FETUS, 04/24/2018, 16:04. FINDINGS: General: A single living intrauterine gestation is present. Presentation: Currently breech. Placenta: Placental position is posterior, without previa. Amniotic fluid index: 15.9 cm, normal range is 5-24 cm. heart rate: 135 beats per minute. Maternal cervical canal: 4.3 cm long. Normal lower limit is 2.5 cm. biometrics: Biparietal diameter: 4.8 cm, 20 weeks 4 days Head circumference: 17.8 cm, 20 weeks 2 days Abdominal circumference: 15.7 cm, 20 weeks 6 days Femur length: 3.3 cm, 20 weeks 3 days Estimated gestational age from initial scan: 20 weeks 5 days Composite gestational age from present scan: 20 weeks 4 days Estimated weight and percentile: 365 g, 39th percentile Measurement variability for biometric dating: +/- 7 days from 14 weeks to 15 weeks 6 days gestation, +/- 10 days from 16 weeks to 21 weeks 6 days gestation, +/- 2 weeks from 22 weeks to 27 weeks 6 days gestation, +/- 3 weeks for 28 weeks gestation or later. weight reference: 4500 g or EFW >90/95% is considered macrosomia or large for gestational age. EFW <10% is small for gestational age. EFW 5% or less is considered intra-uterine growth restriction. Anatomic survey: Neuro: Ventricles are non-dilated at less than 10 mm. Cisterna magna is normal at 3-11 mm. Cerebellum is normal in size and morphology. Nuchal skin fold: Normal at less than 6 mm between 14-21 weeks gestational age. Face: Nose and lips, facial profile are normal. Spine: No evidence for spina bifida. Heart: 4-chambered heart is present, with normal ventricular outflow tracts. Diaphragm: Diaphragm is intact. Stomach: Left-sided stomach is present. Kidneys: No hydronephrosis. Normal is less than 5 mm in 2nd trimester, less than 7 mm in 3rd trimester. Cord: 3-vessel cord has orthotopic insertion. Bladder: Normal in size. Extremities: All 4 extremities identified. IMPRESSION: Single living intrauterine gestation currently in breech presentation with normal survey of anatomy and appropriate interval growth from the first available (most accurate) dating scan that was performed 07/19/19. A delivery date is projected to be centered on 02/20/20. Dictated by: Jeanmarie Bird M.D. on 10/08/2019 at 17:40 Approved by: Jeanmarie Bird M.D. on 10/08/2019 at 17:44
== END ==
PROVIDERS: PCP Family Medicine; Referring Provider Family Medicine; Visit Provider Family Medicine
DX: Z36.89 Encounter for other specified antenatal screening (principal); Z3A.20 20 weeks gestation of pregnancy
CPT/HCPCS: 76811

== ENCOUNTER → 2019-11-04 09:42 | Outpatient (CLI) | payer OTHER, SELFPAY ==
[2019-11-04 10:49] LABS: Cholesterol 243 mg/dL (140-199); Glucose 81 mg/dL (70-100); HDL Cholesterol 98 mg/dL (40-60); LDL Cholesterol Calculated 118 mg/dL (<100); Triglycerides 133 mg/dL (35-150)
== END ==
PROVIDERS: PCP Family Medicine; Referring Provider Family Medicine; Visit Provider Family Medicine
DX: Z00.00 Encounter for general adult medical examination without abnormal findings (principal)
CPT/HCPCS: 36415; 80061; 82947

== ENCOUNTER → 2019-11-18 14:38 | Outpatient (CLI) | payer OTHER, SELFPAY ==
[2019-11-18 17:51] LABS: Hematocrit 35.1 % (36-46); Hemoglobin 12.6 g/dL (12.0-16.0)
[2019-11-18 17:59] LABS: Hemoglobin A1C% w Est Avg Glu 4.5 % (4.0-6.0)
[2019-11-18 18:13] LABS: GTT (PREG) 1 Hour PP 50gm Dose 98 mg/dL (76-139)
== END ==
PROVIDERS: PCP Family Medicine; Referring Provider Family Medicine; Visit Provider Family Medicine
DX: Z34.90 Encounter for supervision of normal pregnancy, unspecified, unspecified trimester (principal); Z13.1 Encounter for screening for diabetes mellitus
CPT/HCPCS: 36415; 82950; 83036; 85014; 85018

== ENCOUNTER → 2020-01-27 14:32 | Outpatient (CLI) | payer OTHER, SELFPAY ==
[2020-01-28 12:43] LABS: Strep Grp B PCR NEG for Grp B Strep
== END ==
PROVIDERS: PCP Family Medicine; Visit Provider Family Medicine
DX: Z34.90 Encounter for supervision of normal pregnancy, unspecified, unspecified trimester (principal); Z3A.37 37 weeks gestation of pregnancy
CPT/HCPCS: 87653

== ENCOUNTER → 2020-02-11 08:27 | Outpatient (CLI) | payer OTHER, SELFPAY ==
[2020-02-12 03:07] LABS: COVID19 Sendout Not Detected (Not Detect)
== END ==
PROVIDERS: PCP Family Medicine; Visit Provider Physician Assistant
DX: Z01.812 Encounter for preprocedural laboratory examination (principal); Z20.828 Contact with and (suspected) exposure to other viral communicable diseases
CPT/HCPCS: 87635

== ENCOUNTER 2020-02-14 06:07 | Inpatient (IN) | payer OTHER, SELFPAY ==
[2020-02-14] VITALS (7 sets, daily range): BP systolic 93–109; BP diastolic 56–71; PULSE 78–82; RESP 16; TEMP 35.9–36.4; O2SAT 100
[2020-02-14 06:42] LABS: Add Manual Diff / Slide Review NO; Basophils Absolute Auto 100 /uL (0-100); Basophils Percent Auto 1.6 % (0-2); Eosinophils Absolute Auto 100 /uL (0-450); Eosinophils Percent Auto 1.8 % (2-4); Hematocrit 40.2 % (36-46); Hemoglobin 14.3 g/dL (12.0-16.0); Lymphocytes Absolute Auto 2000 /uL (1100-4500); Lymphocytes Percent Auto 34.2 % (25-40); Mean Corpuscular HGB Conc 35.6 % (30-36); Mean Corpuscular Hemoglobin 33.4 PG (26-34); Monocytes Absolute Auto 600 /uL (0-900); Monocytes Percent Auto 10.7 % (3-14); Neutrophils Absolute Auto 3100 /uL (1500-7000); Neutrophils Percent Auto 51.7 % (50-75); Platelet Count 258 X10^3/uL (150-400); Red Blood Cell Count 4.28 X10^6/uL (4.0-5.2); Red Cell Distribution Width 13.9 % (11.6-14.8)
--- NOTE | 2020-02-14 07:00 | PM.OBHP.1 ---
OB HPI Date/Time Date of admission: 02/14/20 Date Patient Seen: 02/14/20 Time Patient Seen: 07:10 History of Present Condition Chief complaint: INPT : 2 Para: 1 Estimated Date of Delivery: 02/16/20 Estimated Gestational Age (weeks): 39w5d Narrative: Benitez Andres is a 39 year old at 39 weeks and 5 days gestation here for repeat . was uncomplicated. Mother has a history HSV and has taken prophylactic acyclovir since 36 weeks. Last week she noted small bumps on her lips concerning for an HSV outbreak so we had her increase her acyclovir to 5 times a day. Bumps are drying. Denies genital lesions. Indications Operative indications ( section): previous uterine surgery History of Present care: good care, initiated at week # (11), number of visits (10) and pounds weight gain (16) Dating criteria: LMP confirmed by 1st trimester US Ultrasounds: normal mid trimester US Obstetrical complications: none Medical complications: none Preadmission Labs Blood type: O (+) positive -: Antibody screen: negative, GBS status: negative, HBsAG: negative, HIV: negative and RPR/VDLR: negative -: Rubella: not immune and Varicella: immune HCT: 38.6 HCAB: negative PAP: Normal Quad screen: Normal Urine: Negative 1 hr GTT: 98 Prior (ies) History: 09/11/18 41.1 weeks primary for failure to descend, 8 lb 13 oz male, epidural, [facility] Evaluation Evaluation Baseline heart rate: 130 Variability: Moderate (11-25) monitor accelerations: Present monitor decelerations: Absent Category of Tracing: Reactive Laboratory results: Laboratory Tests 02/14/20 06:20 WBC 6.0 RBC 4.28 Hgb 14.3 Hct 40.2 MCV 94.0 MCH 33.4 MCHC 35.6 RDW 13.9 Plt Count 258 Neut % (Auto) 51.7 Lymph % (Auto) 34.2 [place] % (Auto) 10.7 Eos % (Auto) 1.8 L Baso % (Auto) 1.6 Neut # (Auto) 3100 Lymph # (Auto) 2000 [place] # (Auto) 600 Eos # (Auto) 100 Baso # (Auto) 100 PFSH Medical History Advanced maternal age (AMA) in (Acute) AMA (advanced maternal age) multigravida 35+ (Acute) Anemia (Acute) Chickenpox (Resolved 1985) Chronic back pain (Chronic 2008) HSV (herpes simplex virus) infection (Chronic 2012) UTI (urinary tract infection) (Acute) Surgical History H/O: (Resolved ~09/11/18) No history of previous surgery (Resolved 07/2016) Family History Grandfather Heart disease Heart attack Grandmother Stroke Leukemia Father No problems noted. Mother No problems noted. Grandfather No problems noted. Sister No problems noted. Social History marital status: number of children: 1 household members: spouse and children pets and animals: Yes (Dog) occupational status: employed current occupational exposures/hazards: No Smoking Status: Never smoker alcohol intake: former substance use type: does not use Meds Home Medications and Allergies Home Medications Medication Instructions Recorded Confirmed Type vitamin-ferrous fumarate 1 cap PO QDAY #90 cap 08/30/19 02/14/20 Rx 65 mg iron-folic acid 1 mg capsule acyclovir 400 mg tablet 400 mg PO BID #60 tab 01/13/20 02/14/20 Rx Allergies Allergy/AdvReac Type Severity Reaction Status Date / Time Sulfa (Sulfonamide Allergy Intermediate RASH Verified 01/27/20 16:07 Antibiotics) [SULFA (SULFONAMIDE ANTIBIOTICS)] Review of Systems Review of Systems ROS: Yes All systems reviewed with the patient and are negative except as otherwise documented Exam Vital Signs (past 8 hours): - 02/14/20 06:31 Blood Pressure 109/71 Temperature 36.7? blood pressure 109/71 heart rate 96 Const General: healthy appearing and comfortable [facility] Head: normal to inspection Ears: hearing grossly normal bilaterally Nose: external nose normal Face and sinus: normal facial exam Mouth: oral mucosae normal and other (Very small, faint 1 mm papules on upper and lower lips) Eyes General: appearance normal, both eyes and all related structures Neck Neck: normal visual inspection Resp Effort & Inspection: normal respiratory effort Auscultation: clear to auscultation bilaterally Cardio Rate: regular rate Rhythm: regular rhythm Heart Sounds: no murmurs GI Other: Gravid Back/Spine/Pelvis Back: normal to inspection Skin General: no rashes or lesions noted Extrem General: normal to inspection and no pedal edema Objective Labs Result Diagrams: 02/14/20 06:20 Labs: Laboratory Results - last 24 hr 02/14/20 06:20 WBC 6.0 RBC 4.28 Hgb 14.3 Hct 40.2 MCV 94.0 MCH 33.4 MCHC 35.6 RDW 13.9 Plt Count 258 Neut % (Auto) 51.7 Lymph % (Auto) 34.2 [place] % (Auto) 10.7 Eos % (Auto) 1.8 L Baso % (Auto) 1.6 Neut # (Auto) 3100 Lymph # (Auto) 2000 [place] # (Auto) 600 Eos # (Auto) 100 Baso # (Auto) 100 Assessment and Plan Assessment and Plan Assessment and Plan narrative: 39-year-old at 39 weeks and 5 days gestation here for repeat . Preop COVID-19 testing was negative. Risks and benefits reviewed, discussed risk of bleeding, infection or injury to surrounding organs. Consent signed and placed in the chart. Ancef 2 g prior to surgery.
--- NOTE | 2020-02-14 07:30 | PM.PREOP ---
Pre-operative Note COVID-19 COVID-19 status: Negative Result date/Date tested (Pos, Neg/Pending): 02/11/20 Interval Note History & Physical reviewed/Exam performed by Physician: Yes Changes to H&P: No
[2020-02-14] MEDS: LACTATED RINGERS 1,000 ML 100 ML IV ×4 (07:45→11:57)
[2020-02-14] MEDS: CEFAZOLIN 2 GM/100 ML FROZ.PIGGY IV (07:49)
--- NOTE | 2020-02-14 08:08 | SUR.OPER ---
Supine on Padded OR bed, head on pillow, safety belt at thigh, arms secured on padded arm boards at <90 degrees abduction. Bump under right buttock. Legs uncrossed with pillow under knees, gel pad to heels, tape over blanket to lower legs.
--- NOTE | 2020-02-14 08:17 | SUR.OPER ---
FHT 140 TOB at 08:15 am alive boy. Cord blood x 2 and placenta were given to OB nurse
[2020-02-14] MEDS: TRIAMCINOLONE 40 MG/ML VIAL IM (08:32)
--- NOTE | 2020-02-14 09:07 | PM.OP.1 ---
Operative Date/Time/Diagnoses Date of procedure: 02/14/20 Time of procedure: 08:00 Pre-op diagnosis: Repeat Post-op diagnosis: same Procedure & Clinicians Procedure: Low transverse section Keloid excision of prior scar Same procedure as scheduled: Yes Indications: Prior 39 weeks of Surgeon: Yi Rolon Occupational Therapy Co Director: Chasity Thapa Anesthesia Type: Spinal Operative Notes Findings: Vigorous male infant Uterus, tubes and ovaries Closure Type: primary Specimen(s): none sent Applied: catheter Estimated Blood Loss (mL): 400 Procedure in detail: The patient was taken to the operating room where she was placed in the seated position. Spinal anesthesia was administered. She was then placed in the dorsal supine position with a leftward tilt. She was prepped and draped in the usual sterile fashion. A timeout was performed. After spinal analgesia was found to be adequate, attention was given to the keloid scar of her prior . The keloid was removed entirely and the incision carried through to the underlying layer fascia. The fascia was nicked in the midline and the incision extended bilaterally with Tineo scissors. The superior aspect of the fascial incision was grasped with a Maegan clamps, elevated, and the underlying rectus muscles dissected off sharply and bluntly. Attention was then turned to the inferior aspect of this incision which in a similar fashion was grasped with a Maegan clamps, elevated, and the underlying rectus muscles dissected off sharply and bluntly. The rectus muscles were in the midline. The peritoneum was identified, grasped between 2 hemostats, and entered sharply with the Metzenbaum scissors. This incision was extended superiorly and inferiorly with good visualization of the bladder. The bladder blade was inserted. The vesicouterine peritoneum was identified, grasped with the pickup, and entered sharply with the Metzenbaum scissors. This incision was extended bilaterally, and the bladder flap was created digitally. The bladder blade was reinserted. The lower uterine segment was incised in a transverse fashion with the scalpel. Upon entering the amniotic sac there was a small amount clear amniotic fluid. The 's head was delivered. The remainder of the body delivered without difficulty. The cord was double clamped and cut. The was handed off to waiting RN and RT. The placenta was delivered manually. The uterus was cleared of all clots and debris. The uterine incision was repaired with #1 chromic in a running interlocking fashion and a second layer the same suture was used for an imbricating layer. Hemostasis was achieved. The tubes and ovaries were examined and were found to be normal. The gutters were cleared of all clots and debris. The bladder flap was reapproximated using 2-0 Vicryl in a running fashion. The parietal peritoneum was closed using 2-0 Vicryl in a running fashion. The fascia was reapproximated using 0 Vicryl in a running fashion. Subcutaneous layer was copiously irrigated with warm normal saline. 5 simple interrupted sutures of 3-0 Vicryl were placed to reapproximate the subcutaneous layer. The skin was closed with 4-0 undyed Vicryl in a subcuticular fashion. 0.5 mL of triamcinolone 40 mg/1 mL was injected along the incision for prevention of future keloid formation. Steri-Strips were placed. An Aquacel dressing was placed. The uterus was massaged without production of blood or clots. Sponge, lap, and instrument counts were correct. The patient tolerated the procedure well, and was taken to PACU in stable condition. Complications: none Post-operative Condition: stable Disposition: PACU
--- NOTE | 2020-02-14 09:55 | SUR.PHASEI ---
0945-Pt transferred to room #2 in L&D, report earlier to EDY Atnoine. Pt VSS, A&O, able to move both legs now, denies pain or nausea, able to tolerate cup of ice chips without problems. Assisted Elina in room to change pt peripad and chux, moderate amount of sanguinous vag discharge noted. Fundus firm, below umbilicus and massaged every 15 minutes in PACU.
[2020-02-14] MEDS: KETOROLAC 30 MG/ML VIAL IV ×2 (15:26→21:35)
[2020-02-14] MEDS: ACYCLOVIR 400 MG TABLET PO ×2 (17:09→20:51)
[2020-02-15] MEDS: ACYCLOVIR 400 MG TABLET PO ×5 (01:00→19:26)
[2020-02-15] MEDS: KETOROLAC 30 MG/ML VIAL IV (03:36)
[2020-02-15 06:20] LABS: Hemoglobin 11.7 g/dL (12.0-16.0)
[2020-02-15] MEDS: PRENATAL VIT,CALC/IRON/FOLIC 1 TABLET 1 TAB PO (08:42)
[2020-02-15] MEDS: DOCUSATE 250 MG CAPSULE PO (08:42)
[2020-02-15] MEDS: IBUPROFEN 600 MG TABLET PO ×2 (09:34→15:19)
--- NOTE | 2020-02-15 16:59 | P.DS_ITS ---
Discharge Providers Provider Date of admission: 02/14/20 06:07 Discharge Date: 02/15/20 Primary care physician: Yi Rolon DO Consults: 02/14/20 10:04 Consult to Mannequin Maker Routine Comment: Discharge provider: Yi Rolon DO Summary Hospital Course Date Patient Seen: 02/15/20 Time Patient Seen: 07:45 Procedures: Repeat low transverse section Hospital Course: Patient is a 39 year old G2 now P2 after uncomplicated repeat c- section on 02/14/20 at 39 weeks and 5 days gestation. course was uncomplicated. Patient was eating, ambulating, voiding and passing flatus. Vaginal bleeding was light. Pain well-controlled with ibuprofen only. going very well without concerns in the . She was continued on acyclovir for possible oral herpes outbreak at the end of . Papules on her lips were drying up prior to delivery and significantly decreased prior to discharge. Follow up in clinic in one week for wound check. Advised patient to call for fevers, severe pain or bleeding through more than a pad an hour. Peripartum Data Delivery Method: Section complications: none [place] 1: Gender: Male Disposition of : home Discharge Diagnosis (1) S/P : Status: Acute (2) 39 weeks gestation of : Status: Acute Time Spent with Patient Time attestation: Total time spent providing and/or coordinating discharge services: Objective Labs Result Diagrams: 02/15/20 06:00 Labs: Laboratory Results - last 24 hr 02/15/20 06:00 Hgb 11.7 L Hct 33.0 L Exam Vital Signs (past 8 hours): Oxygen Delivery Method Room Air T 98.5 BP 105/67 HR 92 Narrative Exam Narrative: General: Awake and alert, no acute distress. HEENT: NCAT, EOMI, moist oral mucosa CV: Regular rate and rhythm, no murmurs, rubs or gallops Lungs: CTAB, no wheezes, rales, or rhonchi Abdomen: Steri strips in place over intact incision. No surrounding erythema or drainage. Abdomen is soft, nontender; bowel tones active; uterus firm 1 cm below umbilicus. Extremities: Warm, no edema bilaterally, 2+ pedal pulses bilaterally Discharge Plan Discharge Plan Patient Disposition: Home Discharge orders & Medications Prescriptions: New docusate sodium 250 mg Capsule 250 mg PO DAILY Qty: 30 RF: 0 ibuprofen 600 mg Tablet 600 mg PO Q6HR PRN (Reason: Fever/Mild Pain (1-3)) Qty: 30 RF: 0 oxycodone 5 mg Tablet 5 mg PO Q4HR PRN (Reason: Pain, Moderate (4-6)) Qty: 20 RF: 0 Continued Mynatal 65 mg iron- 1 mg capsule 1 cap PO QDAY Qty: 90 RF: 3 Discontinued acyclovir 400 mg tablet 400 mg PO BID Qty: 60 RF: 1 Follow up/Referrals: Yi Rolon DO [Primary Care Provider] - (Please follow up with Dr. Rolon on at 3:15 pm with a 3:00 check in for baby. At this appointment your follow up appointment will be made. Call [phone] if you have questions/concerns or need to reschedule) Visit Report/Discharge Packet Stand Alone Forms: Discharge: Care Visit Report Forms: Patient Portal/API, Stroke Signs & Symptoms Discharge Data Primary Care Provider: Yi Rolon Discharges patient from system. Discharge Date/Time: 02/15/20 20:15
[2020-02-15 18:10] VITALS: BP 106/60; PULSE 92; RESP 16; TEMP 36.8
[2020-02-15] MEDS: MEASLES,MUMPS,RUBELLA VACC/PF 0.5 ML VIAL SUBCUT (19:21)
== END 2020-02-15 20:15 | disposition home or self-care (01) | DRG 787 ==
PROVIDERS: Admitting Provider Family Medicine; PCP Family Medicine; Referring Provider Family Medicine; Visit Provider Family Medicine
PROC: 10D00Z1 Extraction of Products of Conception, Low, Open Approach (ICD-10-PCS; CPT 59514; principal; 2020-02-14 07:45)
DX: O34.211 Maternal care for low transverse scar from previous cesarean delivery (principal); O98.32 Other infections with a predominantly sexual mode of transmission complicating childbirth; Z3A.39 39 weeks gestation of pregnancy; Z37.0 Single live birth; B00.9 Herpesviral infection, unspecified
CPT/HCPCS: 36415; 59050; 59514; 59515; 85014; 85018; 85025; 86850; 86900; 86901; J0690; J1885; J2274; J2405; J2590; J2765; J3010

== ENCOUNTER → 2020-09-28 16:25 | Outpatient (CLI) | payer OTHER, SELFPAY ==
[2020-09-28] MEDS: COVID-19 VACC #1, MRNA(MOD) 100 MCG/0.5 ML VIAL IM (16:32)
== END ==
PROVIDERS: PCP Family Medicine; Visit Provider Internal Medicine
DX: Z23 Encounter for immunization (principal)
CPT/HCPCS: 0011A; 91301

== ENCOUNTER → 2020-10-26 15:17 | Outpatient (CLI) | payer OTHER, SELFPAY ==
[2020-10-26] MEDS: COVID-19 VACC #2, MRNA(MOD) 100 MCG/0.5 ML VIAL IM (15:22)
== END ==
PROVIDERS: PCP Family Medicine; Visit Provider Internal Medicine
DX: Z23 Encounter for immunization (principal)
CPT/HCPCS: 0012A; 91301

== ENCOUNTER → 2021-07-26 15:46 | Outpatient (CLI) | payer OTHER, SELFPAY ==
--- NOTE | 2021-07-26 15:47 | DI.MG.S_ITS ---
BILATERAL DIGITAL SCREENING MAMMOGRAM 3D/2D WITH CAD: 07/26/2021 CLINICAL: Routine screening. Baseline exam. No prior exams were available for comparison. The tissue of both breasts is heterogeneously dense. This may lower the sensitivity of mammography. Current study was also evaluated with a Computer Aided Detection (CAD) system. No significant masses, calcifications, or other findings are seen in either breast. IMPRESSION: NEGATIVE There is no mammographic evidence of malignancy. A 1 year screening mammogram is recommended. This exam was interpreted at Station ID: [id number]. NOTE: For mammograms, a report in lay terms will be sent to the patient. Approximately 15% of breast malignancies will not be visualized mammographically. In the management of a palpable breast mass, a negative mammogram must not discourage biopsy of a clinically suspicious lesion. Electronically Signed By: Gilberto Saini acr/ninfa:07/27/2021 08:41:24 letter sent: Normal Exam ACR BI-RADS Category 1: Negative [id number]
== END ==
PROVIDERS: PCP Family Medicine; Referring Provider Family Medicine; Visit Provider Family Medicine
DX: Z12.31 Encounter for screening mammogram for malignant neoplasm of breast (principal)
CPT/HCPCS: 77063; 77067

== ENCOUNTER → 2021-12-12 10:04 | Outpatient (CLI) | payer BC, SELFPAY ==
[2021-12-12 10:52] LABS: Add Manual Diff / Slide Review NO; Basophils Absolute Auto 0 /uL (0-100); Basophils Percent Auto 0.7 % (0-2); Eosinophils Absolute Auto 100 /uL (0-450); Eosinophils Percent Auto 2.8 % (2-4); Hematocrit 40.6 % (36-46); Hemoglobin 14.2 g/dL (12.0-16.0); Lymphocytes Absolute Auto 2100 /uL (1100-4500); Lymphocytes Percent Auto 45.3 % (25-40); Mean Corpuscular HGB Conc 35.1 % (30-36); Mean Corpuscular Hemoglobin 31.2 PG (26-34); Mean Corpuscular Volume 88.8 fL (80-100); Monocytes Absolute Auto 300 /uL (0-900); Monocytes Percent Auto 7.4 % (3-14); Neutrophils Absolute Auto 2100 /uL (1500-7000); Neutrophils Percent Auto 43.8 % (50-75); Platelet Count 273 X10^3/uL (150-400); Red Blood Cell Count 4.57 X10^6/uL (4.0-5.2); Red Cell Distribution Width 13.2 % (11.6-14.8); White Blood Cell Count 4.7 X10^3/uL (4.5-11.0)
[2021-12-12 11:08] LABS: Erythrocyte Sedimentation Rate 2 MM/HR (0-20)
[2021-12-12 11:09] LABS: HEMOLYSIS < 15 (0-50); Iron 117 ug/dL (37-170)
[2021-12-12 11:11] LABS: Alanine Aminotransferase 17 IU/L (<35); Albumin Globulin Ratio 1.4 (1.0-2.8); Alkaline Phosphatase 45 U/L (38-126); Aspartate Aminotransferase 25 IU/L (14-36); BUN Creatinine Ratio 18.7 (6-22); Bilirubin Total 0.6 mg/dL (0.2-1.3); Blood Urea Nitrogen 14 mg/dL (7-17); Calcium 9.4 mg/dL (8.4-10.2); Carbon Dioxide 29 mmol/L (22-32); Chloride 101 mmol/L (98-107); Estimated Glomerular Filt Rate > 60 mL/min (>60); Globulin 3.5 g/dL (1.7-4.1); Glucose 88 mg/dL (70-100); HEMOLYSIS < 15 (0-50); Sodium 139 mmol/L (137-145); Total Protein 8.5 g/dL (6.3-8.2)
[2021-12-12 11:21] LABS: Percent Iron Saturation 37 % (15-50); Total Iron Binding Capacity 317 ug/dL (265-497); Transferrin 260 mg/dL (206-381)
[2021-12-12 11:38] LABS: TSH w/ Reflex to FT4 1.19 uIU/mL (0.47-4.68)
[2021-12-12 11:42] LABS: Ferritin 44 ng/mL (6-137)
[2021-12-12 11:58] LABS: Follicle Stimulating Hormone 6.34 mIU/mL
[2021-12-14 17:22] LABS: Dilute Russell Viper Venom 37.9 sec (0.0-47.0); Lupus Reflex Interpretation Comment: (.); PTT-LA 39.1 sec (0.0-51.9)
[2021-12-14 20:48] LABS: CCP Antibodies IgG/IgA 3 units (0-19)
[2021-12-16 01:48] LABS: Anti Mullerian Hormone 5.51 ng/mL (.)
[2021-12-16 13:36] LABS: Cardiolipin Ab IgG <9 GPL U/mL (0-14); Cardiolipin Ab IgM <9 MPL U/mL (0-12)
[2021-12-27 09:21] LABS: Cardiolipin IgA Negative
== END ==
PROVIDERS: Physician Assistant; PCP Family Medicine; Referring Provider Family Medicine; Visit Provider Family Medicine
DX: M25.50 Pain in unspecified joint (principal); N96 Recurrent pregnancy loss; R53.83 Other fatigue
CPT/HCPCS: 36415; 80053; 82397; 82728; 83001; 83520; 83540; 83550; 84443; 85025; 85598; 85613; 85651; 86147; 86148; 86200

== ENCOUNTER → 2021-12-18 14:56 | Outpatient (CLI) | payer BC, SELFPAY ==
--- NOTE | 2021-12-18 14:57 | DI.US.S_ITS ---
PROCEDURE: US PELVIC COMPLETE INDICATIONS: History of recurrent miscarriages TECHNIQUE: Real-time scanning was performed of the pelvic organs, with image documentation. Additional endovaginal scanning was necessary due to incomplete visualization of the adnexal and endometrial structures by transabdominal scanning. COMPARISON: [facility], US, PELVIC COMPLETE, 10/10/2017, 9:02. FINDINGS: Uterus: Uterus is anteverted and normal in size at 11.2 x 5.0 x 4.9 cm. The myometrium is 15.3. The endometrium measures 15.3 mm combined thickness. 1.6 cm posterior intramural fibroid. Ovaries: Right ovary measures 4.6 x 2.2 x 3.5 cm in the left ovary measures 3.4 x 1.8 x 2.1 cm. Simple right ovarian cyst measuring up to 3.4 cm. Other: No pathologic free abdominal or pelvic fluid. IMPRESSION: 1. Endometrial complex upper limits of normal thickness at 15.3 mm. 2. 1.6 cm posterior intramural fibroid. 3. 3.4 cm simple right ovarian cyst. We strive to produce accurate, complete, and clear reports of imaging services. To assist us in improving patient care, this report was composed using standard report templates and voice recognition software. Therefore, it may contain abnormal punctuation, insertions and/or omissions. Occasional wrong-word or sound-alike substitutions may occur. Though we review the report and make efforts to correct it, we do recommend that the report be read carefully in proper context to recognize any text inaccuracies. Dictated by: Vasile FAY Interpreted: Elana Mcginnis MD on 12/18/2021 at 15:42 Transcribed by: JULIO on 12/18/2021 at 15:44 Approved by: Elana Mcginnis M.D. on 01/17/2022 at 8:33
== END ==
PROVIDERS: PCP Family Medicine; Referring Provider Physician Assistant; Visit Provider Physician Assistant
DX: D25.1 Intramural leiomyoma of uterus (principal); N83.291 Other ovarian cyst, right side; N96 Recurrent pregnancy loss
CPT/HCPCS: 76830; 76856

== ENCOUNTER → 2022-05-01 17:02 | Outpatient (CLI) | payer BC, SELFPAY ==
[2022-05-01 18:11] LABS: HCG Quantitative /Beta subunit 3442.6 mIU/mL
== END ==
PROVIDERS: PCP Family Medicine; Referring Provider Obstetrics & Gynecology; Visit Provider Obstetrics & Gynecology
DX: O36.80X0 Pregnancy with inconclusive fetal viability, not applicable or unspecified (principal); N96 Recurrent pregnancy loss
CPT/HCPCS: 36415; 84702

== ENCOUNTER → 2022-05-03 13:31 | Outpatient (CLI) | payer BC, SELFPAY ==
[2022-05-03 14:43] LABS: HCG Quantitative /Beta subunit 5908.1 mIU/mL
== END ==
PROVIDERS: PCP Family Medicine; Referring Provider Obstetrics & Gynecology; Visit Provider Obstetrics & Gynecology
DX: O36.80X0 Pregnancy with inconclusive fetal viability, not applicable or unspecified (principal)
CPT/HCPCS: 36415; 84702

== ENCOUNTER → 2022-06-03 07:02 | Outpatient (CLI) | payer BC, SELFPAY ==
--- NOTE | 2022-06-03 07:02 | DI.US.S_ITS ---
PROCEDURE: US OB <= 14 WEEKS FETUS INDICATIONS: dating ultrasound OUTSIDE/PRIOR DATING DATA: Last menstrual period (LMP): 03/24/2022. LMP-based estimated date of delivery (TRISTON): 12/29/2022. First dating scan (date and location): 06/03/2022. Estimated date of delivery (TRISTON) from first dating scan: 12/27/2022. TECHNIQUE: Real-time scanning was performed of the fetus and maternal pelvic organs, with image documentation. COMPARISON: [facility], , OB <= 14 WEEKS FETUS, 07/19/2019, 14:26. FINDINGS: Embryo: Single live intrauterine is identified with crown-rump length measuring 3.6 cm corresponding to 10 weeks 3 days. Heart rate: 165 beats per minute Maternal organs: Ovaries demonstrate a left corpus luteal cyst.. IMPRESSION: Single live intrauterine with ultrasound gestational age of 10 weeks 3 days. Recommend followup imaging at 20-22 weeks for dates and anatomy. We strive to produce accurate, complete, and clear reports of imaging services. To assist us in improving patient care, this report was composed using standard report templates and voice recognition software. Therefore, it may contain abnormal punctuation, insertions and/or omissions. Occasional wrong-word or sound-alike substitutions may occur. Though we review the report and make efforts to correct it, we do recommend that the report be read carefully in proper context to recognize any text inaccuracies. Dictated by: Oralia Levine M.D. on 06/03/2022 at 11:33 Approved by: Oralia Levine M.D. on 06/03/2022 at 11:34
== END ==
PROVIDERS: PCP Family Medicine; Referring Provider Obstetrics & Gynecology; Visit Provider Obstetrics & Gynecology
DX: Z36.87 Encounter for antenatal screening for uncertain dates (principal); Z3A.10 10 weeks gestation of pregnancy
CPT/HCPCS: 76801

== ENCOUNTER → 2022-07-03 13:36 | Outpatient (CLI) | payer BC, SELFPAY ==
[2022-07-03 13:50] LABS: Appearance Urine UA CLEAR; Bilirubin Urine UA NEGATIVE (NEGATIVE); Color Urine UA YELLOW; Glucose Urine UA NEGATIVE (Negative); Ketones Urine UA NEGATIVE (NEGATIVE); Leukocyte Esterase Urine UA TRACE (NEGATIVE); Nitrite Urine UA NEGATIVE (Negative); Occult Blood Urine UA NEGATIVE (Negative); Protein Urine UA NEGATIVE (Negative); Urobilinogen Urine UA 0.2 E.U./dL (0.2)
[2022-07-03 14:02] LABS: Bacteria Urine None Seen; RBC Urine None Seen (0-5/HPF); Squamous Epithelial Cell Urine 0-1 /HPF (0-5/HPF); WBC Urine 0-1/HPF (0-5/HPF)
== END ==
PROVIDERS: PCP Family Medicine; Visit Provider Family Medicine
DX: Z34.80 Encounter for supervision of other normal pregnancy, unspecified trimester (principal)
CPT/HCPCS: 81003; 81015; 87086

== ENCOUNTER → 2022-07-03 16:50 | Outpatient (CLI) | payer BC, SELFPAY ==
[2022-07-03 18:07] LABS: Add Manual Diff / Slide Review NO; Basophils Absolute Auto 0 /uL (0-100); Basophils Percent Auto 0.2 % (0-2); Eosinophils Absolute Auto 200 /uL (0-450); Eosinophils Percent Auto 2.1 % (2-4); Hematocrit 40.8 % (36-46); Hemoglobin 14.1 g/dL (12.0-16.0); Lymphocytes Absolute Auto 2300 /uL (1100-4500); Lymphocytes Percent Auto 26.7 % (25-40); Mean Corpuscular HGB Conc 34.6 % (30-36); Mean Corpuscular Hemoglobin 30.3 PG (26-34); Mean Corpuscular Volume 87.6 fL (80-100); Monocytes Absolute Auto 600 /uL (0-900); Monocytes Percent Auto 6.9 % (3-14); Neutrophils Absolute Auto 5600 /uL (1500-7000); Neutrophils Percent Auto 64.1 % (50-75); Platelet Count 256 X10^3/uL (150-400); Red Blood Cell Count 4.65 X10^6/uL (4.0-5.2); Red Cell Distribution Width 13.2 % (11.6-14.8); White Blood Cell Count 8.8 X10^3/uL (4.5-11.0)
[2022-07-04 05:49] LABS: RPR Screen Non Reactive (Non Reactive)
[2022-07-04 14:04] LABS: Varicella IgG Antibody 1026 index (Immune >165)
[2022-07-04 19:45] LABS: HIV 1 & 2 Ab/Ag 4th Gen Combo NEGATIVE (NEGATIVE); Hep C Virus Ab w/Reflex Quant NEGATIVE s/c (NEGATIVE)
[2022-07-04 20:28] LABS: Hepatitis B Surface Antigen NEGATIVE s/c (NEGATIVE); Rubella Antibody IgG 31.9 IU/mL (>15)
== END ==
PROVIDERS: PCP Family Medicine; Referring Provider Family Medicine; Visit Provider Family Medicine
DX: O09.522 Supervision of elderly multigravida, second trimester; Z13.79 Encounter for other screening for genetic and chromosomal anomalies
CPT/HCPCS: 36415; 80055; 81003; 81015; 86787; 86803; 86850; 86900; 86901; 87086; 87389

== ENCOUNTER → 2022-08-13 07:57 | Outpatient (CLI) | payer BC, SELFPAY ==
--- NOTE | 2022-08-13 07:57 | DI.US.S_ITS ---
PROCEDURE: US OB >= 14 WEEKS FETUS INDICATIONS: ANATOMY OUTSIDE/PRIOR DATING DATA: Last menstrual period (LMP): 03/24/2022. LMP-based estimated date of delivery (TRISTON): 12/29/2022. First dating scan (date and location): 06/03/2022. Estimated date of delivery (TRISTON) from first dating scan: 12/27/2022. The calculations are made using the ultrasound TRISTON of 12/27/2022. TECHNIQUE: Real-time scanning was performed of the fetus, with image documentation and biometric measurements. Endovaginal scanning: Not performed COMPARISON: [facility], OB >= 14 WEEKS FETUS, 10/08/2019, 16:31. FINDINGS: General: A single living intrauterine gestation is present. Presentation: Vertex. Placenta: Placental position is posterior , without previa. Amniotic fluid index: 8.0 cm, normal range is 5-24 cm. Single deepest vertical pocket is 3.2 cm. heart rate: 137 beats per minute. Maternal cervical canal: 4.4 cm long. Normal lower limit is 2.5 cm. biometrics: Biparietal diameter: 5.1 cm, 21 weeks 2 days Head circumference: 18.2 cm, 20 weeks 4 days Abdominal circumference: 16.2 cm, 21 weeks 2 days Femur length: 3.5 cm, 21 weeks 0 days Clinically estimated gestational age: 20 weeks 2 days Composite gestational age from present scan: 21 weeks 0 days Estimated weight and percentile: 399 g, 87 percentile Anatomic survey: Neuro: Ventricles are non-dilated at less than 10 mm. Cisterna magna is normal at 3-11 mm. Cerebellum is normal in size and morphology. Nuchal skin fold: Normal at less than 6 mm between 14-21 weeks gestational age. Face: Nose and lips, facial profile are normal. Spine: No evidence for spina bifida. Heart: 4-chambered heart is present, with normal ventricular outflow tracts. Diaphragm: Diaphragm is intact. Stomach: Left-sided stomach is present. Kidneys: No hydronephrosis. Normal is less than 5 mm in 2nd trimester, less than 7 mm in 3rd trimester. Cord: 3-vessel cord has marginal insertion on the placenta, proximally 2.1 cm from the placental edge. Bladder: Normal in size. Extremities: All 4 extremities identified. IMPRESSION: 1. Living 2nd trimester intrauterine . Current ultrasound age is 5 days greater than clinical age based on initial 1st trimester ultrasound. 2. Marginal insertion of the cord on the placenta, approximately 2.1 cm from the placental edge. 3. Otherwise normal anatomy survey. We strive to produce accurate, complete, and clear reports of imaging services. To assist us in improving patient care, this report was composed using standard report templates and voice recognition software. Therefore, it may contain abnormal punctuation, insertions and/or omissions. Occasional wrong-word or sound-alike substitutions may occur. Though we review the report and make efforts to correct it, we do recommend that the report be read carefully in proper context to recognize any text inaccuracies. Dictated by: Angel Degroot M.D. on 08/13/2022 at 11:26 Approved by: Angel Degroot M.D. on 08/13/2022 at 11:41
== END ==
PROVIDERS: PCP Family Medicine; Referring Provider Family Medicine; Visit Provider Family Medicine
DX: Z34.82 Encounter for supervision of other normal pregnancy, second trimester (principal); Z3A.21 21 weeks gestation of pregnancy
CPT/HCPCS: 76811

== ENCOUNTER → 2022-09-09 16:14 | Outpatient (CLI) | payer BC, SELFPAY ==
--- NOTE | 2022-09-09 16:16 | DI.US.S_ITS ---
PROCEDURE: US OB FOLLOW UP INDICATIONS: REPEAT RYDER OUTSIDE/PRIOR DATING DATA: Last menstrual period (LMP): 03/24/2022. LMP-based estimated date of delivery (TRISTON): 12/29/2022. First dating scan (date and location): 06/03/2022. Estimated date of delivery (TRISTON) from first dating scan: 12/27/2022. TECHNIQUE: Real-time scanning was performed of the fetus, with image documentation and biometric measurements. Endovaginal scanning: no COMPARISON: None. FINDINGS: General: A single living intrauterine gestation is present. Presentation: Vertex. Placenta: Placental position is posterior , without previa. Amniotic fluid index: 18.5 cm, normal range is 5-24 cm. Single deepest vertical pocket is 5.2 cm. heart rate: 139 beats per minute. Maternal cervical canal: 5.4 cm long. Normal lower limit is 2.5 cm. biometrics: Biparietal diameter: 63 mm; 25 weeks 2 days Head circumference: 224 mm; 24 weeks 3 days Abdominal circumference: 212 mm; 25 weeks 5 days Femur length: 44 mm; 24 weeks 4 days Clinically estimated gestational age: 24 weeks 3 days Composite gestational age from present scan: 25 weeks 0 days Estimated weight and percentile: 773 g, which is at the 73rd percentile for gestational age Other: Not applicable. IMPRESSION: 1. Single living intrauterine gestation as described above. We strive to produce accurate, complete, and clear reports of imaging services. To assist us in improving patient care, this report was composed using standard report templates and voice recognition software. Therefore, it may contain abnormal punctuation, insertions and/or omissions. Occasional wrong-word or sound-alike substitutions may occur. Though we review the report and make efforts to correct it, we do recommend that the report be read carefully in proper context to recognize any text inaccuracies. Dictated by: Ralph Thibodeaux M.D. on 09/10/2022 at 11:01 Approved by: Ralph Thibodeaux M.D. on 09/10/2022 at 11:03
== END ==
PROVIDERS: PCP Family Medicine; Referring Provider Family Medicine; Visit Provider Family Medicine
DX: Z36.2 Encounter for other antenatal screening follow-up (principal); Z3A.25 25 weeks gestation of pregnancy
CPT/HCPCS: 76816

== ENCOUNTER → 2022-10-08 07:39 | Outpatient (CLI) | payer BC, SELFPAY ==
[2022-10-08 09:27] LABS: Hematocrit 35.8 % (36-46)
[2022-10-08 09:39] LABS: GTT (PREG) 1 Hour PP 50gm Dose 90 mg/dL (76-139)
== END ==
PROVIDERS: PCP Family Medicine; Referring Provider Family Medicine; Visit Provider Family Medicine
DX: Z34.90 Encounter for supervision of normal pregnancy, unspecified, unspecified trimester (principal); Z3A.26 26 weeks gestation of pregnancy
CPT/HCPCS: 36415; 82950; 85014; 85018

== ENCOUNTER → 2022-12-04 15:13 | Outpatient (CLI) | payer BC, SELFPAY ==
[2022-12-05 11:37] LABS: Strep Grp B PCR NEG for Grp B Strep
== END ==
PROVIDERS: PCP Family Medicine; Visit Provider Family Medicine
DX: Z34.03 Encounter for supervision of normal first pregnancy, third trimester (principal); Z3A.36 36 weeks gestation of pregnancy
CPT/HCPCS: 87653

== ENCOUNTER 2022-12-22 09:59 | Observation (INO) | payer BC, SELFPAY | END 2022-12-22 13:55 | disposition home or self-care (01) | LOC: LABOR 10:02 | PROVIDERS: Admitting Provider Family Medicine; PCP Family Medicine; Referring Provider Family Medicine; Visit Provider Family Medicine | DX: O26.853 Spotting complicating pregnancy, third trimester (principal); O09.523 Supervision of elderly multigravida, third trimester; Z3A.39 39 weeks gestation of pregnancy | CPT/HCPCS: 59025; 59050; G0378; G0379 ==

== ENCOUNTER 2022-12-25 06:24 | Inpatient (IN) | payer BC, SELFPAY ==
--- NOTE | 2022-12-25 06:52 | PM.OBHP.IH.1 ---
OB HPI Date/Time Date of admission: 12/25/22 Date Patient Seen: 12/25/22 History of Present Condition Chief complaint: INPT TRISTON Calculator Estimated Delivery Date Method Current WG Current Estimate 12/29/22 Manual 39w 3d Final TRISTON - OMAR Other Estimates 12/29/22 LMP (Certain) 39w 3d 12/27/22 Ultrasound #1 39w 5d Estimated Gestational Age (weeks): 39w3d : 6 Para: 2 Narrative: 42yo at 39w3d here for scheduled repeat . Pt reports no LOF, vaginal bleeding, contractions. She is feeling her baby move regularly. Her was complicated by AMA with negative cfDNA, and hx of HSV on Acyclovir prophylaxis. care: good care, initiated at week # (14) and pounds weight gain (18) Dating criteria OB: LMP confirmed by 1st trimester US Ultrasounds: normal 1st trimester US and normal mid trimester US Obstetrical complications: none Medical complications OB: none Preadmission Labs Last OB Lab Results: Blood Type O Positive 07/03/22 17:16 Antibody Screen Negative 07/03/22 17:16 Hematocrit 35.8 % (36-46) L 10/08/22 07:53 Hemoglobin 13.0 g/dL (12.0-16.0) 10/08/22 07:53 Hepatitis B Surface Antigen Negative s/c (NEGATIVE) 07/03/22 17:16 Hepatitis C Antibody Negative s/c (NEGATIVE) 07/03/22 17:16 Rubella Antibody 31.9 IU/mL (>15) 07/03/22 17:16 Varicella-Zoster IgG Antibody 1026 index (Immune >165) 07/03/22 17:16 Glucose 1 Hour 90 mg/dL (76-139) 10/08/22 07:53 Group B Streptococcus (PCR) Neg for grp b strep 12/04/22 15:13 -: Urine: negative Genetic Screens: Cell-free DNA: Normal External Labs -: Urine: negative Prior (ies) Past Pregnancies Del. Date GA/Weeks Labor Lgth Wt Sex Route Outcome Anesthesia Place Delv Breastfeed Preg Comp Name 09/11/18 41.1 8 lb 13 oz Male live - full term epidural IH Dr Rolon and Dr Thapa Still none Rito Pérez 02/14/20 39+5 8 lb 5.159 oz Male live - full term [facility] Aj Mercado Delivery Date: 09/11/18 Last Updated by: Sima Ren R.N. Primary C/S for Failure to Progress Epidural X 2 and then a Spinal [facility] Medical History Anemia Chickenpox (1985) Chronic back pain (2008) HSV (herpes simplex virus) infection (2012) Surgical History (Updated 10/08/22 @ 10:03 by Leslie Beth MD) Anesthesia H/O: (~09/11/18) S/P (~02/14/20) [place] teeth extracted Family History Grandfather Heart disease Heart attack Alcoholism Grandmother Stroke Father Alcoholism Mother No problems noted. Grandfather No problems noted. Sister No problems noted. 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[employer]) current occupational exposures/hazards: No special sarahi needs: No travel history: recent (domestic only) seatbelt use: always helmet use: Yes water heater temp set < 120 deg: Yes working smoke detector in home: Yes fire extinguisher in home: Yes carbon monox detector in home: Yes firearms in home: Yes do you feel safe at home: Yes Smoking Status: Never smoker second hand exposure: No alcohol intake: former (3-5/week when not ) substance use type: does not use during the past year weight has: remained stable well-balanced diet: daily or most days daily servings fruits/ve-4 caffeine: Yes (aware of 200mg limit) Type(s) of exercise: walking and bicycling Meds Home Medications and Allergies Home Medications Medication Instructions Recorded Confirmed Type vitamin with calcium See Rx Instructions .Route 08/09/22 12/23/22 Rx no.72-iron 27 mg-folic acid 1 mg .COMPLEX #90 tabs tablet ( Vitamins Plus Low Iron) acyclovir 400 mg tablet 400 mg PO BID #60 tabs 12/04/22 12/23/22 Rx Allergies Allergy/AdvReac Type Severity Reaction Status Date / Time Sulfa (Sulfonamide Allergy Intermediate RASH Verified 12/23/22 16:16 Antibiotics) [SULFA (SULFONAMIDE ANTIBIOTICS)] OB Exam Narrative Exam Narrative: Gen: NAD, sitting comfortably in bed, appears well CV: RRR, no murmurs Resp: clear to auscultation bilaterally Abd: soft, nontender, gravid Ext: no edema Assessment and Plan Assessment and Plan Assessment and Plan narrative: 42yo at 39w3d here for scheduled repeat . No complications with . GBS negative, Rh positive. Consent for surgery, previously signed, reviewed. Risks including but not limited to bleeding/hemorrhage, infection, injury to other organs such as bowel/bladder, injury to fetus. The pt agrees to blood transfusion if medically necessary. Pt will receive 2g of Ancef prior to surgery. SCDs to be placed.
[2022-12-25 07:34] LABS: Add Manual Diff / Slide Review NO; Basophils Absolute Auto 0 /uL (0-100); Basophils Percent Auto 0.4 % (0-2); Eosinophils Absolute Auto 100 /uL (0-450); Eosinophils Percent Auto 1.5 % (2-4); Hematocrit 37.5 % (36-46); Hemoglobin 13.3 g/dL (12.0-16.0); Lymphocytes Absolute Auto 1600 /uL (1100-4500); Lymphocytes Percent Auto 34.1 % (25-40); Mean Corpuscular HGB Conc 35.5 % (30-36); Mean Corpuscular Hemoglobin 32.7 PG (26-34); Mean Corpuscular Volume 92.1 fL (80-100); Monocytes Absolute Auto 500 /uL (0-900); Monocytes Percent Auto 10.5 % (3-14); Neutrophils Absolute Auto 2600 /uL (1500-7000); Neutrophils Percent Auto 53.5 % (50-75); Platelet Count 264 X10^3/uL (150-400); Red Blood Cell Count 4.07 X10^6/uL (4.0-5.2); White Blood Cell Count 4.8 X10^3/uL (4.5-11.0)
[2022-12-25 07:36] VITALS: BP 112/76
[2022-12-25] MEDS: LACTATED RINGERS 1,000 ML 999 ML IV (08:16)
--- NOTE | 2022-12-25 08:16 | PM.PREOP ---
Pre-operative Note Interval Note History & Physical reviewed/Exam performed by Physician: Yes Changes to H&P: No
[2022-12-25] MEDS: CITRIC ACID/SODIUM CITRATE 15 ML SOLUTION 30 ML PO (08:17)
[2022-12-25] MEDS: CEFAZOLIN 2 GM/100 ML PREMIX 100 ML IV (08:40)
[2022-12-25] MEDS: TRIAMCINOLONE 40 MG/ML VIAL 30 MG IM (09:21)
--- NOTE | 2022-12-25 09:24 | SUR.OPER ---
Pre procedure FHR 124. Viable baby boy born at 0857. Placenta delivererd at 0901. Cord blood and placenta given to OB RNs.
[2022-12-25 09:45] VITALS: BP 89/57; PULSE 89; RESP 19; TEMP 35.8; O2SAT 100
[2022-12-25 09:50] VITALS: BP 90/54; PULSE 89; RESP 20; O2SAT 100
[2022-12-25 09:55] VITALS: BP 85/55; PULSE 86; RESP 22; O2SAT 100
[2022-12-25 09:59] VITALS: BP 84/47; PULSE 84; RESP 18; O2SAT 100
--- NOTE | 2022-12-25 10:00 | P.OP_ITS ---
Operative Date/Time/Diagnoses Date of procedure: 12/25/22 Time of procedure: 08:15 Pre-op diagnosis: 39w3d gestation AMA HSV GBS negative Rh positive Hx of prior Post-op diagnosis: same Procedure & Clinicians Procedure: Repeat Same procedure as scheduled: Yes Indications: Hx of prior Surgeon: Leslie Beth Click Yes if Unassisted: No Clinical Microbiologist: Carito Bonds Anesthesia Type: Spinal Operative Notes Findings: Normal uterus, ovaries, and tubes Closure Type: primary Specimen(s): cord blood Intraoperative meds administered: Ketorolac and Pitocin Applied: Catheter Estimated Blood Loss (mL): 400 Blood products transfused: none Procedure in detail: OPERATIVE COURSE: The patient was taken to the operating room where spinal anesthesia was placed. She was then prepared and draped in the normal sterile fashion in the dorsal supine position with a leftward tilt. Anesthesia was tested and found to be adequate. A Pfannensteil skin incision was then made with the scalpel and carried through to the underlying layer of fascia with the scalpel. The fascia was incised in the midline and the incision extended laterally with the Tineo scissors. The superior aspect of the fascial incision was then grasped with Maegan clamps, elevated with the help of the surgical scheduler, and the underlying rectus muscles dissected off bluntly and sharply where needed. Attention was then turned to the inferior aspect of the incision which, in a similar fashion, was grasped, tented up with Maegan clamps, and the rectus muscle dissected off bluntly and sharply with Tineo scissors. The rectus muscles were then in the midline, and the peritoneum was identified and entered bluntly. The peritoneal incision was then extended with good visua lization of the bladder. Retraction was provided by the surgical scheduler. The bladder blade was then inserted and the vesicouterine peritoneum identified, grasped with pick-ups and entered sharply with the Metzenbaum scissors. The incision was then extended laterally and the bladder flap created digitally. The bladder blade was then reinserted and the lower uterine segment incised in a transverse fashion with the scalpel, with the surgical scheduler providing suction. The uterine incision was then extended superolaterally by pulling superolaterally on both sides. Membranes were ruptured and fluid was clear. The bladder blade was removed the infant's head was flexed out of OA position and delivered atraumatically, with fundal pressure by the surgical scheduler. The nose and mouth were suctioned with bulb suction and the cord was clamped and cut after 1 minute. The was handed off to the waiting nursing staff. Cord blood was collected for Rh status. The placenta was then delivered by manual extraction. The uterus was then cleared of all clots and debris. The uterine incision was repaired with O Vicryl in a running, locked fashion. A second layer of the same suture was used to obtain excellent hemostasis. The gutters were cleared of all clots. Hysterotomy was investigated and found to be hemostatic. The peritoneum was closed with 3-O Vicryl. The fascia was reapproximated with O Vicryl in a running fashion. The subcutaneous tissue was reapproximated with 3-O Vicryl. The skin was closed with 4-O Vicryl. The surgical scheduler helped with retraction during closures. SPONGE AND NEEDLE COUNTS: Correct x3. DRESSING: Aquacel ANTICOAGULATION: SCDs applied prior to Surgery Preop antibiotics given (see MAR). The patient was taken to recovery room having tolerated procedure well. Complications: none [place] Baby 1: Gender: Male Presentation: vertex Position: Left Occiput Anterior Placental Delivery Description: Manual Removal Cord Vessel Description: 3 Vessels and Nuchal Cord score (1 min): 9 score (5 min): 9 weight: 8 lb 9.357 oz Post-operative Condition: stable Disposition: PACU Aftercare: routine postop
[2022-12-25] MEDS: ACETAMINOPHEN 325 MG TABLET 650 MG PO ×2 (12:07→18:18)
[2022-12-25] MEDS: KETOROLAC 30 MG/ML VIAL IV ×2 (15:23→21:30)
[2022-12-25] MEDS: diphenhydrAMINE 50 MG/ML VIAL 25 MG IV (15:41)
[2022-12-26] MEDS: ACETAMINOPHEN 325 MG TABLET 650 MG PO ×3 (00:05→15:51)
[2022-12-26] MEDS: KETOROLAC 30 MG/ML VIAL IV (03:30)
[2022-12-26 06:14] LABS: Add Manual Diff / Slide Review NO; Basophils Absolute Auto 0 /uL (0-100); Basophils Percent Auto 0.1 % (0-2); Eosinophils Absolute Auto 100 /uL (0-450); Eosinophils Percent Auto 1.7 % (2-4); Hematocrit 33.7 % (36-46); Lymphocytes Absolute Auto 1600 /uL (1100-4500); Lymphocytes Percent Auto 22.8 % (25-40); Mean Corpuscular HGB Conc 35.7 % (30-36); Mean Corpuscular Volume 92.6 fL (80-100); Monocytes Absolute Auto 500 /uL (0-900); Monocytes Percent Auto 7.8 % (3-14); Neutrophils Absolute Auto 4800 /uL (1500-7000); Neutrophils Percent Auto 67.6 % (50-75); Platelet Count 221 X10^3/uL (150-400); Red Blood Cell Count 3.64 X10^6/uL (4.0-5.2); Red Cell Distribution Width 13.8 % (11.6-14.8); White Blood Cell Count 7.1 X10^3/uL (4.5-11.0)
--- NOTE | 2022-12-26 14:29 | P.DS_ITS ---
Discharge Providers Provider Date of admission: 12/25/22 06:24 Discharge Date: 12/26/22 Primary care physician: Yi Rolon DO Consults: 12/25/22 11:10 Consult to Director Internal Communications Routine Comment: Discharge provider: Leslie Beth MD Summary Hospital Course Date Patient Seen: 12/26/22 Diagnoses: 39w3d gestation AMA HSV GBS negative Rh positive Hx of prior Hospital Course: The pt presented for scheduled repeat . The surgery was without complications, and she delivered a viable baby boy on 12/25/22. , there were no complications. At the time of discharge she was voiding, ambulating, and passing flatus without difficulty. Her lochia was decreasing appropriately. Her pain was well controlled. She was with good latch. She will f/u in 6 weeks for check. Peripartum Data Infant Delivery Method: Section Procedures: Repeat complications: none 1: Gender: Male Disposition of : home Discharge Diagnosis (1) S/P : Status: Acute Time Spent with Patient Time attestation: Total time spent providing and/or coordinating discharge services: Objective Labs 12/26/22 05:51 Labs: Laboratory Results - last 24 hr 12/26/22 05:51 WBC 7.1 RBC 3.64 L Hgb 12.0 Hct 33.7 L MCV 92.6 MCH 33.0 MCHC 35.7 RDW 13.8 Plt Count 221 Neut % (Auto) 67.6 Lymph % (Auto) 22.8 L Coleman % (Auto) 7.8 Eos % (Auto) 1.7 L Baso % (Auto) 0.1 Neut # (Auto) 4800 Lymph # (Auto) 1600 Coleman # (Auto) 500 Eos # (Auto) 100 Baso # (Auto) 0 Exam Vital Signs (past 8 hours): Oxygen Delivery Method Room Air Resp Auscultation: clear to auscultation bilaterally Cardio Rate: regular rate Rhythm: regular rhythm Heart Sounds: S1 normal, S2 normal and no murmurs GI Inspection: non-distended and incision (dressing c/d/i) Palpation: soft, No guarding and tender (appropriately tender) Auscultation: normal bowel sounds Other: fundus firm and below the umbilicus Extrem Right upper extremity: no edema Discharge Plan Discharge Plan Patient Disposition: Home Discharge orders & Medications Prescriptions: New acetaminophen 325 mg Tablet 650 mg PO Q6H Qty: 30 0RF docusate sodium 100 mg Capsule 100 mg PO DAILY Qty: 30 0RF ibuprofen 600 mg Tablet 600 mg PO Q6H Qty: 30 0RF oxycodone 5 mg Tablet 5 mg PO Q4H PRN (Reason: Pain, Moderate (4-6)) Qty: 20 0RF Continued Vitamin Plus Low Iron 27 mg iron- 1 mg tablet See Rx Instructions .ROUTE .COMPLEX Qty: 90 1RF Dose Instruction: take 1 tablet by mouth once daily Rx Instructions: take 1 tablet by mouth once daily Discontinued acyclovir 400 mg tablet 400 mg PO BID Qty: 60 1RF Follow up/Referrals: Leslie Beth MD [Physician] - (appointment on Friday,December at 10:00 am for aquacel removal; then Friday,January at 10:00 am for 6 weeks check.) Yi Rolon DO [Primary Care Provider] - Diet/Activity/Treatments Diet: Diet as Tolerated and Regular Skin/Wound/Dressing Care Report to your healthcare provider any signs of infection, such as:: chills, fever, increased pain and unusual drainage Visit Report/Discharge Packet Instructions: DI for Stand Alone Forms: Patient Portal/API, Stroke Signs & Symptoms Discharge Data Primary Care Provider: Yi Rolon Discharges patient from system. Discharge Date/Time: 12/26/22 16:30
[2022-12-26] MEDS: IBUPROFEN 600 MG TABLET PO (15:51)
[2022-12-26] MEDS: OXYCODONE IR 5 MG TABLET PO (15:52)
== END 2022-12-26 16:30 | disposition home or self-care (01) | DRG 788 ==
PROVIDERS: Admitting Provider Family Medicine; PCP Family Medicine; Referring Provider Family Medicine; Visit Provider Family Medicine
PROC: 10D00Z1 Extraction of Products of Conception, Low, Open Approach (ICD-10-PCS; CPT 59514; principal; 2022-12-25 08:15)
DX: O98.32 Other infections with a predominantly sexual mode of transmission complicating childbirth (principal); B00.9 Herpesviral infection, unspecified; O34.219 Maternal care for unspecified type scar from previous cesarean delivery; Z3A.39 39 weeks gestation of pregnancy; Z37.0 Single live birth; Z67.40 Type O blood, Rh positive
CPT/HCPCS: 36415; 59050; 59510; 59514; 85025; 86850; 86900; 86901; J0690; J1200; J1885; J2274; J2405; J2590